=== PATIENT | male | born 1975 | race African-American/Black ===

== ENCOUNTER 2017-09-24 18:04 | Inpatient (IN) | payer OTHER ==
[2017-09-24 18:26] VITALS: BMI 21.1
--- NOTE | 2017-09-24 20:40 | HP ---
CIWA Score - CIWA Score Nausea/Vomitin-Cont. Nausea/Vomiting Muscle Tremors: 4-Moderate,w/Arms Extend Anxiety: 4-Mod. Anxious/Guarded Agitation: 4-Moderately Restless Paroxysmal Sweats: 3 Orientation: 1-Uncertain about Date Tacttile Disturbances: 0-None Auditory Disturbances: 0-None Visual Disturbances: 0-None Headache: 0-None Present CIWA-Ar Total Score: 23 Admission ROS BHS - HPI Chief Complaint: C/O WITHDRAWAL SX'S; SEEKING DETOX TXMENT FOR ALCOHOLISM Allergies/Adverse Reactions: Allergies Allergy/AdvReac Type Severity Reaction Status Date / Time No Known Allergies Allergy Verified 08/01/15 10:13 History of Present Illness: 42 Y.O. MALEW WITH LONG HX/O ALCOHOLISM PRESENTS FOR DETOX ADMISSION. CLIENT IS KNOWN TO THIS PROGRAM, LAST HERE IN 2015. HE IS REFERRED TODAY BY [facility] DUE TO A FALL FROM BEING INTOXICATED AND BLACKING OUT. A 1 INCH LACERATION AND ABRASION TO UPPER LEFT LIP NOTED . HE PRESENTS WITH DC PAPERS HEAD CT NOTED. REPORTS LONGEST CLEAN TIME 1 YEAR. Exam Limitations: Clinical Condition - Ebola screening Have you traveled outside of the country in the last 21 days: No Have you had contact with anyone from an Ebola affected area: No Have you been sick,other than usual withdrawal symptoms: No Do you have a fever: No - Review of Systems Constitutional: Chills, Loss of Appetite, Night Sweats EENT: reports: No Symptoms Reported Respiratory: reports: No Symptoms reported Cardiac: reports: No Symptoms Reported GI: reports: Nausea, Poor Appetite, Poor Fluid Intake, Vomiting, Abdominal cramping : reports: No Symptoms Reported Musculoskeletal: reports: No Symptoms Reported Integumentary: reports: Other (LEFT UPPER LIP ABRASION ABRASION NOTED TO BOTH HAND KNUCKLES DUE TO RECENT FALL) Neuro: reports: Seizure, Dizziness, Other (BLACK OUTS) Endocrine: reports: No Symptoms Reported Hematology: reports: No Symptoms Reported Psychiatric: reports: Anxious, Depressed, other (BIPOLAR SCHIZOPHRENIA) Other Systems: Reviewed and Negative Patient History - Patient Medical History Hx Anemia: No Hx Asthma: No Hx Chronic Obstructive Pulmonary Disease (COPD): No Hx Cancer: No Hx Cardiac Disorders: No Hx Congestive Heart Failure: No Hx Hypertension: No Hx Hypercholesterolemia: No Hx Pacemaker: No HX Cerebrovascular Accident: No Hx Seizures: Yes (2007 R/T ALCOHOL) Hx Dementia: No Hx Diabetes: No Hx Gastrointestinal Disorders: No Hx Liver Disease: No Hx Genitourinary Disorders: No Hx Sexually Transmitted Disorders: No Hx Renal Disease (ESRD): No Hx Thyroid Disease: No Hx Human Immunodeficiency Virus (HIV): No Hx Hepatitis C: No Hx Depression: Yes Hx Suicide Attempt: No Hx Bipolar Disorder: Yes (not on any meds) Hx Schizophrenia: Yes Other Medical History: ANXIETY - Patient Surgical History Past Surgical History: Yes Hx Neurologic Surgery: No Hx Cataract Extraction: No Hx Cardiac Surgery: No Hx Lung Surgery: Yes (PARTIAL R lung LOBECTOMY removed in 2005) Hx Breast Surgery: No Hx Breast Biopsy: No Hx Abdominal Surgery: No Hx Appendectomy: No Hx Cholecystectomy: No Hx Genitourinary Surgery: No Hx Section: No Hx Orthopedic Surgery: No Anesthesia Reaction: Yes - PPD History Previous Implant?: Yes Documented Results: Negative w/proof Implanted On Prior [facility] Admission?: Yes Date: 08/03/15 Results: 0MM PPD to be Administered?: Yes - Smoking Cessation Smoking history: Current every day smoker Have you smoked in the past 12 months: Yes Aproximately how many cigarettes per day: 10 Cigars Per Day: 0 Hx Chewing Tobacco Use: No Initiated information on smoking cessation: Yes 'Breaking Loose' booklet given: 09/24/17 - Substance & Tx. History Hx Alcohol Use: Yes Hx Substance Use: Yes Substance Use Type: Alcohol, Marijuana Hx Substance Use Treatment: Yes ([facility]) - Substances Abused Alcohol Route: Oral Frequency: Daily Amount used: Beer 2 x 6 pack, Vodka 2 pints Age of first use: 13 Date of Last Use: 09/23/17 Marijuana/Hashish Route: Smoking Frequency: 3-6 times per week Amount used: $10 Age of first use: 16 Date of Last Use: 09/23/17 Family Disease History - Family Disease History Family Disease History: Other: Mother (HX/O CRACK AND ALCOHOL; HTN), Sister (HX/ O CRACK AND ALCHOLISM) Admission Physical Exam S - Vital Signs Vital Signs: Vital Signs - 24 hr 09/24/17 18:21 Temperature 99.8 F H Pulse Rate 108 H Respiratory 18 Rate Blood Pressure 150/100 - Physical General Appearance: Yes: Disheveled (BLOODY CLOTHES), Moderate Distress, Alcohol on Breath, Tremorous, Anxious HEENTM: Yes: EOMI, Normal ENT Inspection, Normocephalic, Normal Voice, BRITTANI, Pharynx Normal, Other (MISSING TEETH) Respiratory: Yes: Chest Non-Tender, Lungs Clear, Normal Breath Sounds, No Respiratory Distress, No Accessory Muscle Use Neck: Yes: No masses,lesions,Nodules, Supple, Trachea in good position Breast: Yes: Breast Exam Deferred Cardiology: Yes: Regular Rhythm, S1, S2, Tachycardia Abdominal: Yes: Normal Bowel Sounds, Non Tender, Flat, Soft Genitourinary: Yes: Within Normal Limits Back: Yes: Normal Inspection Musculoskeletal: Yes: full range of Motion, Gait Steady Extremities: Yes: Normal Range of Motion, Non-Tender, Tremors Neurological: Yes: Alert, Motor Strength 5/5 Integumentary: Yes: Normal Color, Dry, Warm, Other (LEFT UPPER LIP ABRASION AND 1 CM LACERATION) Lymphatic: Yes: Within Normal Limits - Diagnostic (1) Alcohol dependence with uncomplicated withdrawal Current Visit: Yes Status: Chronic (2) Cannabis dependence, uncomplicated Current Visit: Yes Status: Chronic (3) Status post fall Current Visit: Yes Status: Acute (4) Nicotine dependence Current Visit: No Status: Chronic Qualifiers: Nicotine product type: cigarettes Substance use status: uncomplicated Qualified Code(s): F17.210 - Nicotine dependence, cigarettes, uncomplicated Cleared for Admission [facility] - Detox or Rehab [facility] Level of Care: Medically Managed Detox Regimen/Protocol: Librium [facility] Breath Alcohol Content Breath Alcohol Content: 0.064 Urine Drug Screen - Results Drug Screen Negative: No Urine Drug Screen Results: THC-Marijuana
[2017-09-24] MEDS ORDERED: MAGNESIUM HYDROX 2400MG/30ML ORAL SUSPENSION 30 ML CUP PO PRN (20:53)
[2017-09-24] MEDS ORDERED: guaiFENesin/D-METHORPHAN HB 10 ML UNIT-DOSE CUPS PO PRN (20:53)
[2017-09-24] MEDS ORDERED: MAG HYDROX/AL HYDROX/SIMETH 30 ML UNIT-DOSE CUP PO PRN (20:53)
[2017-09-24] MEDS ORDERED: ACETAMINOPHEN 325 MG TABLET (FP) PO PRN (20:53)
[2017-09-24] MEDS ORDERED: chlordiazePOXIDE HCL 25 MG CAPSULE PO PRN (20:53)
[2017-09-24] MEDS ORDERED: hydrOXYzine PAMOATE 50 MG CAPSULE (FP) PO PRN (20:53)
[2017-09-24] MEDS ORDERED: MAGNESIUM CITRATE 300 ML BOTTLE PO PRN (20:53)
[2017-09-24] MEDS ORDERED: MENTHOL/PHENOL 1 EACH UD MM PRN (20:53)
[2017-09-24] MEDS ORDERED: LOPERAMIDE HCL 2 MG CAPSULE PO PRN (20:53)
[2017-09-24] MEDS ORDERED: NICOTINE POLACRILEX 2 MG GUM BC PRN (20:53)
[2017-09-24] MEDS ORDERED: IBUPROFEN 400 MG TABLET (FP) PO PRN (20:53)
[2017-09-24] MEDS ORDERED: P-EPHED 60MG/TRIPROLIDI 2.5MG TABLET PO PRN (20:53)
[2017-09-24] MEDS: THIAMINE HCL 100 MG TABLET (FP) PO SCH (22:34)
[2017-09-24] MEDS: chlordiazePOXIDE HCL 25 MG CAPSULE PO SCH (22:35)
[2017-09-24] MEDS: BACITRACIN 0.9 GM PACKET TP SCH (22:56)
[2017-09-25 00:01] LABS: URINE APPEARANCE CLEAR; URINE BILIRUBIN NEGATIVE (NEGATIVE); URINE BLOOD 1+ (NEGATIVE); URINE COLOR YELLOW; URINE GLUCOSE (UA) NEGATIVE (NEGATIVE); URINE KETONE 1+ (NEGATIVE); URINE LEUK ESTERASE NEGATIVE (NEGATIVE); URINE NITRITE NEGATIVE (NEGATIVE); URINE PROTEIN 2+ (NEGATIVE); URINE UROBILINOGEN NEGATIVE mg/dL (0.2-1.0)
[2017-09-25 00:06] LABS: URINE BACTERIA RARE /hpf (NONE SEEN); URINE MUCUS RARE
[2017-09-25] MEDS: chlordiazePOXIDE HCL 25 MG CAPSULE PO SCH ×4 (05:57→23:28)
[2017-09-25 10:14] LABS: HEMATOCRIT 43.1 % (35.4-49); HEMOGLOBIN 14.9 GM/dL (11.7-16.9); MCH 35.6 pg (25.7-33.7); MCHC 34.6 g/dl (32.0-35.9); MEAN CELL VOLUME 102.7 fl (80-96); MEAN PLT VOLUME 8.6 fl (7.5-11.1); PLATELET COUNT 230 K/MM3 (134-434); RDW 13.6 % (11.9-15.9); WHITE BLOOD COUNT 5.7 K/mm3 (4.0-10.0)
[2017-09-25 10:20] LABS: CHLORIDE 97 mmol/L (98-107); POTASSIUM 3.8 mmol/L (3.5-5.1); SODIUM 137 mmol/L (136-145)
--- NOTE | 2017-09-25 10:32 | CONSULT ---
[facility] Psychiatric Consult - Data Date of interview: 09/25/17 Admission source: [facility] Identifying data: This is 42 years old male, father of three, single, on SSI, with psychiatric hospitalization history, history of Alcohol and Nicotine depednency ias here for detox Substance Abuse History: Smoking history: Current every day smoker. Have you smoked in the past 12 months: Yes. Aproximately how many cigarettes per day: 10. Cigars Per Day: 0. Hx Chewing Tobacco Use: No. Initiated information on smoking cessation: Yes. 'Breaking Loose' booklet given: 09/24/17. - Substance & Tx. History. Hx Alcohol Use: Yes. Hx Substance Use: Yes. Substance Use Type : Alcohol, Marijuana. Hx Substance Use Treatment: Yes ([facility]). - Substances Abused. Alcohol. Route: Oral. Frequency: Daily. Amount used: Beer 2 x 6 pack, Vodka 2 pints. Age of first use: 13. Date of Last Use: 09/23/17. Marijuana/Hashish. Route: Smoking. Frequency: 3-6 times per week. Amount used : $10. Age of first use: 16. Date of Last Use: 09/23/17 Medical History: Head trauma history, he was refered from [facility] after falling incident being under Alcohol influance. Patient with a one inch laceration,abrasion at the left upper lip. Psychiatric History: As per chart patient has been on [id number] poqd, Depacote 250mg po bid in the past, refusing pharmacological interventiuon at this mopment. Reports unclear psychiatric admission on about 10 years ago, as per computer there is a history of Schizophrenia Physical/Sexual Abuse/Trauma History: Denies Additional Comment: Observation. Detox Unit Care Protocol. Consider: [id number] poqd,. Depacote 250mg po bid Mental Status Exam - Mental Status Exam Alert and Oriented to: Person Cognitive Function: Fair Patient Appearance: Unkempt Mood: Angry, Anxious Affect: Mood Congruent Patient Behavior: Cooperative Speech Pattern: Appropriate Voice Loudness: Normal Thought Process: Circumstantial Thought Disorder: Being Controlled Hallucinations: Denies Suicidal Ideation: Denies Homicidal Ideation: Denies Insight/Judgement: Fair Sleep: Difficulty falling asleep Appetite: Weight loss Muscle strength/Tone: Normal Gait/Station: Shuffling Additional Comments: Observation. Detox Unit Care Protocol. Consider: [id number] poqd,. Depacote 250mg po bid Psychiatric Findings - Problem List ([place] 1, 2,3) (1) Alcohol dependence with uncomplicated withdrawal Current Visit: Yes Status: Chronic (2) Cannabis dependence, uncomplicated Current Visit: Yes Status: Chronic (3) Alcohol dependence Current Visit: No Status: Acute (4) Cannabis dependence Current Visit: No Status: Acute (5) Schizophrenia Current Visit: No Status: Acute (6) Nicotine dependence Current Visit: No Status: Chronic Qualifiers: Nicotine product type: cigarettes Substance use status: uncomplicated Qualified Code(s): F17.210 - Nicotine dependence, cigarettes, uncomplicated - Initial Treatment Plan Initial Treatment Plan: Observation. Detox Unit Care Protocol. Consider: [id number] poqd,. Depacote 250mg po bid
[2017-09-25 10:43] LABS: ALBUMIN 4.3 g/dl (3.4-5.0); ALK PHOS 91 U/L (45-117); ANION GAP 10 (8-16); BILIRUBIN,TOTAL 1.2 mg/dL (0.2-1.0); BLOOD UREA NITROGEN 16 mg/dL (7-18); CALCIUM 9.3 mg/dL (8.5-10.1); CO2 30 mmol/L (21-32); CREATININE 1.1 mg/dL (0.7-1.3); GLUCOSE,RANDOM 83 mg/dL (74-106); SGOT/AST 25 U/L (15-37); SGPT/ALT 24 U/L (12-78); TOT PROT 7.7 g/dl (6.4-8.2)
[2017-09-25] MEDS: BACITRACIN 0.9 GM PACKET TP SCH ×2 (11:12→23:29)
[2017-09-25] MEDS: PRENATAL VITAMINS W/ FOLIC ACID TABLET (FP) PO SCH (11:12)
[2017-09-25] MEDS: NICOTINE 14 MG/24 HOURS TOPICAL PATCH TD SCH (11:14)
--- NOTE | 2017-09-25 12:40 | PN ---
S CIWA - CIWA Score Nausea/Vomitin Muscle Tremors: 3 Anxiety: 3 Agitation: 2 Paroxysmal Sweats: 1-Minimal Palms Moist Orientation: 0-Oriented Tacttile Disturbances: 1-Very Mild Itch/Numbness Auditory Disturbances: 1-Very Mild Visual Disturbances: 0-None Headache: 2-Mild CIWA-Ar Total Score: 16 BHS Progress Note (SOAP) Subjective: ALERT,IRRITABLE,ANXIOUS,INTERRUPTED SLEEP,TREMOR Objective: 09/25/17 12:38 Vital Signs Temperature 96.1 F L 09/25/17 06:55 Pulse Rate 67 09/25/17 06:55 Respiratory Rate 19 09/25/17 06:55 Blood Pressure 108/61 09/25/17 06:55 O2 Sat by Pulse Oximetry (%) EKG NSR WITH SINUS ARRHYTHMIA Laboratory Last Values WBC 5.7 K/mm3 (4.0-10.0) D 09/25/17 07:00 RBC 4.20 M/mm3 (4.00-5.60) 09/25/17 07:00 Hgb 14.9 GM/dL (11.7-16.9) 09/25/17 07:00 Hct 43.1 % (35.4-49) 09/25/17 07:00 MCV 102.7 fl (80-96) H 09/25/17 07:00 MCH 35.6 pg (25.7-33.7) H 09/25/17 07:00 MCHC 34.6 g/dl (32.0-35.9) 09/25/17 07:00 RDW 13.6 % (11.9-15.9) 09/25/17 07:00 Plt Count 230 K/MM3 (134-434) D 09/25/17 07:00 MPV 8.6 fl (7.5-11.1) 09/25/17 07:00 Sodium 137 mmol/L (136-145) 09/25/17 07:00 Potassium 3.8 mmol/L (3.5-5.1) 09/25/17 07:00 Chloride 97 mmol/L (98-107) L 09/25/17 07:00 Carbon Dioxide 30 mmol/L (21-32) 09/25/17 07:00 Anion Gap 10 (8-16) 09/25/17 07:00 BUN 16 mg/dL (7-18) 09/25/17 07:00 Creatinine 1.1 mg/dL (0.7-1.3) 09/25/17 07:00 Creat Clearance w eGFR > 60 (>60) 09/25/17 07:00 Random Glucose 83 mg/dL (74-106) 09/25/17 07:00 Calcium 9.3 mg/dL (8.5-10.1) 09/25/17 07:00 Total Bilirubin 1.2 mg/dL (0.2-1.0) H 09/25/17 07:00 AST 25 U/L (15-37) D 09/25/17 07:00 ALT 24 U/L (12-78) D 09/25/17 07:00 Alkaline Phosphatase 91 U/L (45-117) D 09/25/17 07:00 Total Protein 7.7 g/dl (6.4-8.2) 09/25/17 07:00 Albumin 4.3 g/dl (3.4-5.0) 09/25/17 07:00 Urine Color Yellow 09/24/17 20:00 Urine Appearance Clear 09/24/17 20:00 Urine pH 5.0 (5.0-8.0) 09/24/17 20:00 Ur Specific [place] 1.024 (1.001-1.035) 09/24/17 20:00 Urine Protein 2+ (NEGATIVE) H 09/24/17 20:00 Urine Glucose (UA) Negative (NEGATIVE) 09/24/17 20:00 Urine Ketones 1+ (NEGATIVE) H 09/24/17 20:00 Urine Blood 1+ (NEGATIVE) H 09/24/17 20:00 Urine Nitrite Negative (NEGATIVE) 09/24/17 20:00 Urine Bilirubin Negative (NEGATIVE) 09/24/17 20:00 Urine Urobilinogen Negative mg/dL (0.2-1.0) 09/24/17 20:00 Ur Leukocyte Esterase Negative (NEGATIVE) 09/24/17 20:00 Urine WBC (Auto) 1 /hpf (3-5) 09/24/17 20:00 Urine RBC (Auto) <1 /hpf (0-3) 09/24/17 20:00 Urine Bacteria Rare /hpf (NONE SEEN) 09/24/17 20:00 Urine Mucus Rare 09/24/17 20:00 RPR Titer Nonreactive (NONREACTIVE) 09/25/17 07:00 HIV 1&2 Antibody Screen Negative 09/25/17 07:00 HIV P24 Antigen Negative 09/25/17 07:00 Assessment: 09/25/17 12:39 WITHDRAWAL SYMPTOM Plan: CONTINUE DETOX
--- NOTE | 2017-09-25 16:06 | EKG ---
Test Reason : Blood Pressure : / mmHG Vent. Rate : 080 BPM Atrial Rate : 080 BPM P-R Int : 138 ms QRS Dur : 078 ms QT Int : 342 ms P-R-T Axes : 053 065 037 degrees QTc Int : 394 ms NORMAL SINUS RHYTHM WITH SINUS ARRHYTHMIA NORMAL ECG NO PREVIOUS ECGS AVAILABLE Confirmed by RHINA TENA MD ([id number]) on 09/25/2017 4:06:43 PM Referred By: Mendez Murrieta Confirmed By:RHINA TENA MD
[2017-09-25] MEDS: ONDANSETRON *ODT* 4 MG TABLET SL PRN (21:55)
[2017-09-25] MEDS: THIAMINE HCL 100 MG TABLET (FP) PO SCH (23:29)
[2017-09-26] MEDS: chlordiazePOXIDE HCL 25 MG CAPSULE PO SCH ×3 (06:07→17:16)
--- NOTE | 2017-09-26 12:06 | PN ---
S CIWA - CIWA Score Nausea/Vomitin Muscle Tremors: 3 Anxiety: 3 Agitation: 2 Paroxysmal Sweats: 1-Minimal Palms Moist Orientation: 0-Oriented Tacttile Disturbances: 1-Very Mild Itch/Numbness Auditory Disturbances: 1-Very Mild Visual Disturbances: 0-None Headache: 2-Mild CIWA-Ar Total Score: 16 BHS Progress Note (SOAP) Subjective: ALERT,IRRITABLE,ANXIOUS,INTERRUPTED SLEEP,TREMOR Objective: 09/26/17 12:05 Vital Signs Temperature 96.4 F L 09/26/17 10:04 Pulse Rate 107 H 09/26/17 10:04 Respiratory Rate 20 09/26/17 10:04 Blood Pressure 146/83 09/26/17 10:04 O2 Sat by Pulse Oximetry (%) Laboratory Last Values WBC 5.7 K/mm3 (4.0-10.0) D 09/25/17 07:00 RBC 4.20 M/mm3 (4.00-5.60) 09/25/17 07:00 Hgb 14.9 GM/dL (11.7-16.9) 09/25/17 07:00 Hct 43.1 % (35.4-49) 09/25/17 07:00 MCV 102.7 fl (80-96) H 09/25/17 07:00 MCH 35.6 pg (25.7-33.7) H 09/25/17 07:00 MCHC 34.6 g/dl (32.0-35.9) 09/25/17 07:00 RDW 13.6 % (11.9-15.9) 09/25/17 07:00 Plt Count 230 K/MM3 (134-434) D 09/25/17 07:00 MPV 8.6 fl (7.5-11.1) 09/25/17 07:00 Sodium 137 mmol/L (136-145) 09/25/17 07:00 Potassium 3.8 mmol/L (3.5-5.1) 09/25/17 07:00 Chloride 97 mmol/L (98-107) L 09/25/17 07:00 Carbon Dioxide 30 mmol/L (21-32) 09/25/17 07:00 Anion Gap 10 (8-16) 09/25/17 07:00 BUN 16 mg/dL (7-18) 09/25/17 07:00 Creatinine 1.1 mg/dL (0.7-1.3) 09/25/17 07:00 Creat Clearance w eGFR > 60 (>60) 09/25/17 07:00 Random Glucose 83 mg/dL (74-106) 09/25/17 07:00 Calcium 9.3 mg/dL (8.5-10.1) 09/25/17 07:00 Total Bilirubin 1.2 mg/dL (0.2-1.0) H 09/25/17 07:00 AST 25 U/L (15-37) D 09/25/17 07:00 ALT 24 U/L (12-78) D 09/25/17 07:00 Alkaline Phosphatase 91 U/L (45-117) D 09/25/17 07:00 Total Protein 7.7 g/dl (6.4-8.2) 09/25/17 07:00 Albumin 4.3 g/dl (3.4-5.0) 09/25/17 07:00 Urine Color Yellow 09/24/17 20:00 Urine Appearance Clear 09/24/17 20:00 Urine pH 5.0 (5.0-8.0) 09/24/17 20:00 Ur Specific [place] 1.024 (1.001-1.035) 09/24/17 20:00 Urine Protein 2+ (NEGATIVE) H 09/24/17 20:00 Urine Glucose (UA) Negative (NEGATIVE) 09/24/17 20:00 Urine Ketones 1+ (NEGATIVE) H 09/24/17 20:00 Urine Blood 1+ (NEGATIVE) H 09/24/17 20:00 Urine Nitrite Negative (NEGATIVE) 09/24/17 20:00 Urine Bilirubin Negative (NEGATIVE) 09/24/17 20:00 Urine Urobilinogen Negative mg/dL (0.2-1.0) 09/24/17 20:00 Ur Leukocyte Esterase Negative (NEGATIVE) 09/24/17 20:00 Urine WBC (Auto) 1 /hpf (3-5) 09/24/17 20:00 Urine RBC (Auto) <1 /hpf (0-3) 09/24/17 20:00 Urine Bacteria Rare /hpf (NONE SEEN) 09/24/17 20:00 Urine Mucus Rare 09/24/17 20:00 RPR Titer Nonreactive (NONREACTIVE) 09/25/17 07:00 HIV 1&2 Antibody Screen Negative 09/25/17 07:00 HIV P24 Antigen Negative 09/25/17 07:00 Assessment: 09/26/17 12:06 WITHDRAWAL SYMPTOM Plan: CONTINUE DETOX
[2017-09-26] MEDS: NICOTINE 14 MG/24 HOURS TOPICAL PATCH TD SCH (13:53)
[2017-09-26] MEDS: PRENATAL VITAMINS W/ FOLIC ACID TABLET (FP) PO SCH (13:53)
[2017-09-26] MEDS: BACITRACIN 0.9 GM PACKET TP SCH ×2 (13:54→22:53)
[2017-09-26] MEDS: ONDANSETRON *ODT* 4 MG TABLET SL PRN ×2 (14:34→21:54)
[2017-09-26] MEDS: THIAMINE HCL 100 MG TABLET (FP) PO SCH (21:54)
[2017-09-26] MEDS: chlordiazePOXIDE 5 MG CAPSULE PO SCH (22:59)
[2017-09-27] MEDS: chlordiazePOXIDE 5 MG CAPSULE PO SCH ×2 (06:00→11:15)
[2017-09-27] MEDS: PRENATAL VITAMINS W/ FOLIC ACID TABLET (FP) PO SCH (11:14)
[2017-09-27] MEDS: NICOTINE 14 MG/24 HOURS TOPICAL PATCH TD SCH (11:14)
[2017-09-27] MEDS: BACITRACIN 0.9 GM PACKET TP SCH (11:15)
--- NOTE | 2017-09-27 13:01 | PN ---
S Progress Note (SOAP) Subjective: ALERT,IRRITABLE,INTERRUPTED SLEEP,POOR ORAL INTAKE Objective: 09/27/17 13:00 Vital Signs Temperature 98.6 F 09/27/17 10:38 Pulse Rate 122 H 09/27/17 10:38 Respiratory Rate 18 09/27/17 10:38 Blood Pressure 121/97 09/27/17 10:38 O2 Sat by Pulse Oximetry (%) Assessment: 09/27/17 13:00 WITHDRAWAL SYMPTOM Plan: CONTINUE DETOX,ENSURE PLUS 120 MLS PO TID,DISCHARGE IN AM
[2017-09-27] MEDS: ONDANSETRON *ODT* 4 MG TABLET SL PRN (16:59)
[2017-09-27 17:16] LABS: URINE APPEARANCE CLEAR; URINE BILIRUBIN NEGATIVE (NEGATIVE); URINE BLOOD NEGATIVE (NEGATIVE); URINE COLOR AMBER; URINE GLUCOSE (UA) NEGATIVE (NEGATIVE); URINE KETONE TRACE (NEGATIVE); URINE LEUK ESTERASE NEGATIVE (NEGATIVE); URINE NITRITE NEGATIVE (NEGATIVE); URINE UROBILINOGEN 4.0 E.U/dl mg/dL (0.2-1.0)
[2017-09-27 17:17] LABS: URINE PROTEIN 2+ (NEGATIVE)
[2017-09-27 17:21] LABS: EPI CELLS RARE /HPF (FEW)
[2017-09-27 18:11] VITALS: BP 104/77; PULSE 105; TEMP 98.6
--- NOTE | 2017-09-27 19:35 | DS ---
[facility] Detox Discharge Summary Admission Date: 09/24/17 Discharge Date: 09/27/17 - History Present History: Alcohol Dependence Pertinent Past History: Schizophrenia Cannabis Dependence Nicotine dependence - Physical Exam Results Vital Signs: Vital Signs Temperature 98.6 F 09/27/17 18:11 Pulse Rate 105 H 09/27/17 18:11 Respiratory Rate 20 09/27/17 18:11 Blood Pressure 104/77 09/27/17 18:11 O2 Sat by Pulse Oximetry (%) - Medication Discharge Medications: Ambulatory Orders Divalproex [Depakote -] 250 mg PO BID 08/01/15 Fluoxetine HCl [Prozac -] 20 mg PO DAILY 08/01/15 - Diagnosis (1) Schizophrenia Status: Chronic Qualifiers: Schizophrenia type: unspecified Qualified Code(s): F20.9 - Schizophrenia, unspecified (2) Status post fall Status: Resolved (3) Alcohol dependence with uncomplicated withdrawal Status: Acute (4) Cannabis dependence, uncomplicated Status: Chronic (5) Nicotine dependence Status: Chronic Qualifiers: Nicotine product type: cigarettes Substance use status: uncomplicated Qualified Code(s): F17.210 - Nicotine dependence, cigarettes, uncomplicated - AMA Did Patient Leave Against Medical Advice: Yes
--- NOTE | 2017-09-27 19:42 | PN ---
[facility] Progress Note Note: Patient was evaluated by bedside, reports feeling weak. Patient in no apparent distress. Patient insist on leaving today, although it advise for him to stay and continue to treatment. The patient verbalizes he understands the risks and complications that may result from the refusal of medical care which may include and permanent disability and has the mental capacity to make such decision. Patient advised to seek medical care at local ER , PCP or urgent care if symptoms worsen.
[2017-09-27] MEDS ORDERED: chlordiazePOXIDE HCL 10 MG CAPSULE PO SCH (23:00)
== END 2017-09-27 18:25 | disposition left against medical advice (07) | DRG 770 ==
LOC: YASAS 18:04 → Y6N 18:48
PROVIDERS: ADMIT Internal Medicine; ATTEND Internal Medicine
PROC: HZ2ZZZZ Detoxification Services for Substance Abuse Treatment (ICD-10-PCS; principal; 2017-09-24)
DX: F10.230 Alcohol dependence with withdrawal, uncomplicated (principal); F12.20 Cannabis dependence, uncomplicated; F17.210 Nicotine dependence, cigarettes, uncomplicated; F20.9 Schizophrenia, unspecified; I49.9 Cardiac arrhythmia, unspecified; Z91.81 History of falling; R00.0 Tachycardia, unspecified; Z90.2 Acquired absence of lung [part of]; Z86.69 Personal history of other diseases of the nervous system and sense organs; Z59.0 Homelessness
CPT/HCPCS: 36415; 80053; 81003; 81015; 85027; 86593; 87389; 93005; 93010; Q0162

== ENCOUNTER 2017-10-24 15:00 | Inpatient (IN) | payer OTHER ==
[2017-10-24 16:52] VITALS: BMI 21.1
--- NOTE | 2017-10-24 20:52 | HP ---
CIWA Score - CIWA Score Nausea/Vomitin Muscle Tremors: 4-Moderate,w/Arms Extend Anxiety: 1-Mildly Anxious Agitation: 3 Paroxysmal Sweats: 1-Minimal Palms Moist Orientation: 0-Oriented Tacttile Disturbances: 0-None Auditory Disturbances: 0-None Visual Disturbances: 0-None Headache: 2-Mild CIWA-Ar Total Score: 14 Admission ROS S - HPI Chief Complaint: alcohol withdrawal symptoms Allergies/Adverse Reactions: Allergies Allergy/AdvReac Type Severity Reaction Status Date / Time No Known Allergies Allergy Verified 10/24/17 18:28 History of Present Illness: 42 years old male with a long history of alcohol dependence is seeking admission to detox. Patient has been in previous detox at [facility] and left AMA at his recent admission on 09/24/2017. Importance of completing detox therapy reinforced and patient verbalized understanding. He has medical history of seizures and depression. Denies suicidal ideation at this time. Exam Limitations: No Limitations - Ebola screening Have you traveled outside of the country in the last 21 days: No Have you had contact with anyone from an Ebola affected area: No Have you been sick,other than usual withdrawal symptoms: No Do you have a fever: No - Review of Systems Constitutional: Chills, Loss of Appetite, Malaise, Night Sweats, Unexplained wgt Loss (reports 30 lbs weight loss) EENT: reports: Nose Congestion, Sinus Pressure Respiratory: reports: No Symptoms reported Cardiac: reports: No Symptoms Reported GI: reports: Nausea, Poor Appetite, Poor Fluid Intake, Vomiting (x 10), Abdominal cramping : reports: No Symptoms Reported Musculoskeletal: reports: Back Pain Integumentary: reports: Dryness, Flushing Neuro: reports: Headache, Tingling, Tremors Endocrine: reports: No Symptoms Reported Hematology: reports: No Symptoms Reported Psychiatric: reports: Mood/Affect Appropiate, Agitated, Anxious Other Systems: Reviewed and Negative Patient History - Patient Medical History Hx Anemia: No Hx Asthma: No Hx Chronic Obstructive Pulmonary Disease (COPD): No Hx Cancer: No Hx Cardiac Disorders: No Hx Congestive Heart Failure: No Hx Hypertension: No Hx Hypercholesterolemia: No Hx Pacemaker: No HX Cerebrovascular Accident: No Hx Seizures: Yes (2014 R/T ALCOHOL- nnot on medication) Hx Dementia: No Hx Diabetes: No Hx Gastrointestinal Disorders: No Hx Liver Disease: No Hx Genitourinary Disorders: No Hx Sexually Transmitted Disorders: No Hx Renal Disease (ESRD): No Hx Thyroid Disease: No Hx Human Immunodeficiency Virus (HIV): No Hx Hepatitis C: No Hx Depression: Yes (Not on medication) Hx Suicide Attempt: No (Denies suicidal ideation at this time) Hx Bipolar Disorder: Yes (not on any meds) Hx Schizophrenia: Yes - Patient Surgical History Past Surgical History: Yes Hx Neurologic Surgery: No Hx Cataract Extraction: No Hx Cardiac Surgery: No Hx Lung Surgery: Yes (PARTIAL R lung LOBECTOMY removed in 2005) Hx Breast Surgery: No Hx Breast Biopsy: No Hx Abdominal Surgery: No Hx Appendectomy: No Hx Cholecystectomy: No Hx Genitourinary Surgery: No Hx Section: No Hx Orthopedic Surgery: No Anesthesia Reaction: Yes - PPD History Previous Implant?: Yes Documented Results: Negative w/proof Date: 09/26/17 Results: 0MM PPD to be Administered?: No - Reproductive History Patient is a Female of Child Bearing Age (11 -55 yrs old): No (MALE) - Smoking Cessation Smoking history: Current every day smoker Have you smoked in the past 12 months: Yes Aproximately how many cigarettes per day: 10 Cigars Per Day: 0 Hx Chewing Tobacco Use: No Initiated information on smoking cessation: Yes 'Breaking Loose' booklet given: 10/24/17 - Substance & Tx. History Hx Alcohol Use: Yes Hx Substance Use: Yes Substance Use Type: Marijuana Hx Substance Use Treatment: Yes ([facility]) - Substances Abused Alcohol Route: Oral Frequency: Daily Amount used: LIQUOR- 2 PINTS, BEER- 2 SIX PACKS Age of first use: 15 Date of Last Use: 10/23/17 Marijuana/Hashish Route: Smoking Frequency: 3-6 times per week Amount used: $10 Age of first use: 14 Date of Last Use: 10/23/17 Cocaine Route: Smoking Amount used: $40 Age of first use: 18 Date of Last Use: 10/23/17 Family Disease History - Family Disease History Family Disease History: Other: Mother (HX/O CRACK AND ALCOHOL; HTN), Sister (HX/ O CRACK AND ALCHOLISM) Admission Physical Exam BHS - Vital Signs Vital Signs: Vital Signs - 24 hr 10/24/17 16:49 Temperature 97.8 F Pulse Rate 102 H Respiratory 18 Rate Blood Pressure 133/87 - Physical General Appearance: Yes: Moderate Distress, Thin, Tremorous, Sweating HEENTM: Yes: EOMI, Normocephalic, Normal Voice, BRITTANI Respiratory: Yes: Normal Breath Sounds, No Respiratory Distress Neck: Yes: Supple Breast: Yes: Breast Exam Deferred Cardiology: Yes: Tachycardia Abdominal: Yes: Normal Bowel Sounds, Soft Genitourinary: Yes: Within Normal Limits Back: Yes: Normal Inspection Musculoskeletal: Yes: Within Normal Limits Extremities: Yes: Tremors Neurological: Yes: Alert, Normal Mood/Affect Integumentary: Yes: Dry Lymphatic: Yes: Within Normal Limits - Diagnostic (1) Seizures Current Visit: Yes Status: Chronic (2) Depression Current Visit: Yes Status: Chronic Qualifiers: Depression Type: unspecified Qualified Code(s): F32.9 - Major depressive disorder, single episode, unspecified (3) Alcohol dependence with uncomplicated withdrawal Status: Chronic (4) Cannabis dependence, uncomplicated Current Visit: Yes Status: Chronic (5) Nicotine dependence Current Visit: Yes Status: Chronic Qualifiers: Nicotine product type: cigarettes Substance use status: uncomplicated Qualified Code(s): F17.210 - Nicotine dependence, cigarettes, uncomplicated Cleared for Admission [facility] - Detox or Rehab [facility] Level of Care: Medically Managed Detox Regimen/Protocol: Librium [facility] Breath Alcohol Content Breath Alcohol Content: 0.060 Urine Drug Screen - Results Drug Screen Negative: No Urine Drug Screen Results: THC-Marijuana
[2017-10-24] MEDS ORDERED: MAGNESIUM HYDROX 2400MG/30ML ORAL SUSPENSION 30 ML CUP PO PRN (21:03)
[2017-10-24] MEDS ORDERED: MENTHOL/PHENOL 1 EACH UD MM PRN (21:03)
[2017-10-24] MEDS ORDERED: MAG HYDROX/AL HYDROX/SIMETH 30 ML UNIT-DOSE CUP PO PRN (21:03)
[2017-10-24] MEDS ORDERED: MAGNESIUM CITRATE 300 ML BOTTLE PO PRN (21:03)
[2017-10-24] MEDS ORDERED: P-EPHED 60MG/TRIPROLIDI 2.5MG TABLET PO PRN (21:03)
[2017-10-24] MEDS ORDERED: guaiFENesin/D-METHORPHAN HB 10 ML UNIT-DOSE CUPS PO PRN (21:03)
[2017-10-24] MEDS ORDERED: ACETAMINOPHEN 325 MG TABLET (FP) PO PRN (21:03)
[2017-10-24] MEDS ORDERED: LOPERAMIDE HCL 2 MG CAPSULE PO PRN (21:03)
[2017-10-24] MEDS ORDERED: IBUPROFEN 400 MG TABLET (FP) PO PRN (21:03)
[2017-10-24] MEDS ORDERED: NICOTINE POLACRILEX 2 MG GUM BC PRN (21:03)
[2017-10-24] MEDS ORDERED: chlordiazePOXIDE HCL 25 MG CAPSULE PO PRN (21:10)
[2017-10-24] MEDS ORDERED: chlordiazePOXIDE HCL 25 MG CAPSULE PO ONE (21:10)
[2017-10-24] MEDS ORDERED: MELATONIN 5 MG TABLETS PO PRN (22:00)
[2017-10-25] MEDS: THIAMINE HCL 100 MG TABLET (FP) PO SCH ×2 (02:18→22:45)
[2017-10-25] MEDS: chlordiazePOXIDE HCL 25 MG CAPSULE PO SCH ×5 (02:19→22:44)
[2017-10-25 08:50] LABS: URINE APPEARANCE CLEAR; URINE BILIRUBIN NEGATIVE (<2.0 mg/dL); URINE BLOOD NEGATIVE (NEGATIVE); URINE COLOR YELLOW; URINE GLUCOSE (UA) NEGATIVE (NEGATIVE); URINE KETONE NEGATIVE (NEGATIVE); URINE LEUK ESTERASE NEGATIVE (NEGATIVE); URINE NITRITE NEGATIVE (NEGATIVE); URINE PROTEIN NEGATIVE (NEGATIVE)
[2017-10-25 10:48] LABS: HEMATOCRIT 42.5 % (35.4-49); HEMOGLOBIN 14.6 GM/dL (11.7-16.9); MCH 35.8 pg (25.7-33.7); MCHC 34.3 g/dl (32.0-35.9); MEAN CELL VOLUME 104.3 fl (80-96); MEAN PLT VOLUME 8.7 fl (7.5-11.1); PLATELET COUNT 211 K/MM3 (134-434); RBC 4.07 M/mm3 (4.00-5.60); RDW 13.5 % (11.9-15.9); WHITE BLOOD COUNT 4.9 K/mm3 (4.0-10.0)
[2017-10-25] MEDS: PRENATAL VITAMINS W/ FOLIC ACID TABLET (FP) PO SCH (10:51)
[2017-10-25] MEDS: NICOTINE 14 MG/24 HOURS TOPICAL PATCH TD SCH (10:51)
--- NOTE | 2017-10-25 10:53 | EKG ---
Test Reason : Blood Pressure : / mmHG Vent. Rate : 067 BPM Atrial Rate : 067 BPM P-R Int : 124 ms QRS Dur : 092 ms QT Int : 392 ms P-R-T Axes : -20 063 038 degrees QTc Int : 414 ms NORMAL SINUS RHYTHM NORMAL ECG WHEN COMPARED WITH ECG OF 24-SEP-2017 20:26, NO SIGNIFICANT CHANGE WAS FOUND Confirmed by MARKUS BRYSON MD ([id number]) on 10/25/2017 10:53:09 AM Referred By: Confirmed By:MARKUS BRYSON MD
[2017-10-25 11:03] LABS: ALBUMIN 3.9 g/dl (3.4-5.0); ANION GAP 7 (8-16); BLOOD UREA NITROGEN 10 mg/dL (7-18); CALCIUM 9.5 mg/dL (8.5-10.1); CHLORIDE 101 mmol/L (98-107); CO2 31 mmol/L (21-32); GLUCOSE,RANDOM 73 mg/dL (74-106); POTASSIUM 3.9 mmol/L (3.5-5.1); SGOT/AST 23 U/L (15-37); SGPT/ALT 20 U/L (12-78); SODIUM 139 mmol/L (136-145)
[2017-10-25 11:06] LABS: ALK PHOS 90 U/L (45-117); CREATININE 0.9 mg/dL (0.7-1.3); TOT PROT 7.1 g/dl (6.4-8.2)
--- NOTE | 2017-10-25 11:10 | PN ---
S CIWA - CIWA Score Nausea/Vomitin Muscle Tremors: 3 Anxiety: 3 Agitation: 2 Paroxysmal Sweats: 1-Minimal Palms Moist Orientation: 0-Oriented Tacttile Disturbances: 1-Very Mild Itch/Numbness Auditory Disturbances: 1-Very Mild Visual Disturbances: 1-Very Mild Sensitivity Headache: 2-Mild CIWA-Ar Total Score: 17 BHS Progress Note (SOAP) Subjective: ALERT,IRRITABLE,ANXIOUS,INTERRUPTED SLEEP,TREMOR Objective: 10/25/17 11:08 Vital Signs Temperature 99.3 F 10/25/17 09:19 Pulse Rate 75 10/25/17 09:19 Respiratory Rate 18 10/25/17 09:19 Blood Pressure 115/83 10/25/17 09:19 O2 Sat by Pulse Oximetry (%) EKG NSR,NORMAL ECG Laboratory Last Values WBC 4.9 K/mm3 (4.0-10.0) 10/25/17 07:00 RBC 4.07 M/mm3 (4.00-5.60) 10/25/17 07:00 Hgb 14.6 GM/dL (11.7-16.9) 10/25/17 07:00 Hct 42.5 % (35.4-49) 10/25/17 07:00 MCV 104.3 fl (80-96) H 10/25/17 07:00 MCH 35.8 pg (25.7-33.7) H 10/25/17 07:00 MCHC 34.3 g/dl (32.0-35.9) 10/25/17 07:00 RDW 13.5 % (11.9-15.9) 10/25/17 07:00 Plt Count 211 K/MM3 (134-434) 10/25/17 07:00 MPV 8.7 fl (7.5-11.1) 10/25/17 07:00 Urine Color Yellow 10/24/17 22:00 Urine Appearance Clear 10/24/17 22:00 Urine pH 5.0 (5.0-8.0) 10/24/17 22:00 Ur Specific [place] 1.014 (1.001-1.035) 10/24/17 22:00 Urine Protein Negative (NEGATIVE) 10/24/17 22:00 Urine Glucose (UA) Negative (NEGATIVE) 10/24/17 22:00 Urine Ketones Negative (NEGATIVE) 10/24/17 22:00 Urine Blood Negative (NEGATIVE) 10/24/17 22:00 Urine Nitrite Negative (NEGATIVE) 10/24/17 22:00 Urine Bilirubin Negative (<2.0 mg/dL) 10/24/17 22:00 Urine Urobilinogen 2.0 mg/dL (0.2-1.0) 10/24/17 22:00 Ur Leukocyte Esterase Negative (NEGATIVE) 10/24/17 22:00 LABS PENDING Assessment: 10/25/17 11:09 WITHDRAWAL SYMPTOM Plan: CONTINUE DETOX
[2017-10-26] MEDS: chlordiazePOXIDE HCL 25 MG CAPSULE PO SCH ×2 (06:14→11:04)
[2017-10-26 10:21] VITALS: BP 124/74; PULSE 89; TEMP 98.4
[2017-10-26] MEDS: NICOTINE 14 MG/24 HOURS TOPICAL PATCH TD SCH (11:04)
[2017-10-26] MEDS: PRENATAL VITAMINS W/ FOLIC ACID TABLET (FP) PO SCH (11:04)
--- NOTE | 2017-10-26 11:25 | PN ---
S CIWA - CIWA Score Nausea/Vomitin Muscle Tremors: 2 Anxiety: 2 Agitation: 2 Paroxysmal Sweats: 1-Minimal Palms Moist Orientation: 0-Oriented Tacttile Disturbances: 1-Very Mild Itch/Numbness Auditory Disturbances: 1-Very Mild Visual Disturbances: 0-None Headache: 2-Mild CIWA-Ar Total Score: 14 BHS Progress Note (SOAP) Subjective: ALERT,IRRITABLE,ANXIOUS,INTERRUPTED SLEEP PAIN IN THE BODY Objective: 10/26/17 11:24 Vital Signs Temperature 98.4 F 10/26/17 10:20 Pulse Rate 89 10/26/17 10:20 Respiratory Rate 20 10/26/17 10:20 Blood Pressure 124/74 10/26/17 10:20 O2 Sat by Pulse Oximetry (%) Laboratory Last Values WBC 4.9 K/mm3 (4.0-10.0) 10/25/17 07:00 RBC 4.07 M/mm3 (4.00-5.60) 10/25/17 07:00 Hgb 14.6 GM/dL (11.7-16.9) 10/25/17 07:00 Hct 42.5 % (35.4-49) 10/25/17 07:00 MCV 104.3 fl (80-96) H 10/25/17 07:00 MCH 35.8 pg (25.7-33.7) H 10/25/17 07:00 MCHC 34.3 g/dl (32.0-35.9) 10/25/17 07:00 RDW 13.5 % (11.9-15.9) 10/25/17 07:00 Plt Count 211 K/MM3 (134-434) 10/25/17 07:00 MPV 8.7 fl (7.5-11.1) 10/25/17 07:00 Sodium 139 mmol/L (136-145) 10/25/17 07:00 Potassium 3.9 mmol/L (3.5-5.1) 10/25/17 07:00 Chloride 101 mmol/L (98-107) 10/25/17 07:00 Carbon Dioxide 31 mmol/L (21-32) 10/25/17 07:00 Anion Gap 7 (8-16) L 10/25/17 07:00 BUN 10 mg/dL (7-18) D 10/25/17 07:00 Creatinine 0.9 mg/dL (0.7-1.3) 10/25/17 07:00 Creat Clearance w eGFR > 60 (>60) 10/25/17 07:00 Random Glucose 73 mg/dL (74-106) L 10/25/17 07:00 Calcium 9.5 mg/dL (8.5-10.1) 10/25/17 07:00 Total Bilirubin 1.0 mg/dL (0.2-1.0) 10/25/17 07:00 AST 23 U/L (15-37) 10/25/17 07:00 ALT 20 U/L (12-78) 10/25/17 07:00 Alkaline Phosphatase 90 U/L (45-117) 10/25/17 07:00 Total Protein 7.1 g/dl (6.4-8.2) 10/25/17 07:00 Albumin 3.9 g/dl (3.4-5.0) 10/25/17 07:00 Urine Color Yellow 10/24/17 22:00 Urine Appearance Clear 10/24/17 22:00 Urine pH 5.0 (5.0-8.0) 10/24/17 22:00 Ur Specific [place] 1.014 (1.001-1.035) 10/24/17 22:00 Urine Protein Negative (NEGATIVE) 10/24/17 22:00 Urine Glucose (UA) Negative (NEGATIVE) 10/24/17 22:00 Urine Ketones Negative (NEGATIVE) 10/24/17 22:00 Urine Blood Negative (NEGATIVE) 10/24/17 22:00 Urine Nitrite Negative (NEGATIVE) 10/24/17 22:00 Urine Bilirubin Negative (<2.0 mg/dL) 10/24/17 22:00 Urine Urobilinogen 2.0 mg/dL (0.2-1.0) 10/24/17 22:00 Ur Leukocyte Esterase Negative (NEGATIVE) 10/24/17 22:00 Assessment: 10/26/17 11:24 WITHDRAWAL SYMPTOM Plan: CONTINUE DETOX
--- NOTE | 2017-10-26 11:27 | PN ---
S Progress Note Note: PATIENT DID NOT WANT TO COMPLETE TREATMENT,SIGNED RELEASE AMA,ATTEMPT TO CONVINCE PATIENT TO STAY WITH NO AVAIL
--- NOTE | 2017-10-26 11:32 | DS ---
[facility] Detox Discharge Summary Admission Date: 10/24/17 Discharge Date: 10/26/17 - History Present History: Alcohol Dependence, Cannabis Dependence Additional Comments: PATIENT DID NOT WANT TO COMPLETE TREATMENT,SIGNED RELEASE AMA Pertinent Past History: NICOTINE DEPENDENCE SEIZURE - Physical Exam Results Vital Signs: Vital Signs Temperature 98.4 F 10/26/17 10:20 Pulse Rate 89 10/26/17 10:20 Respiratory Rate 20 10/26/17 10:20 Blood Pressure 124/74 10/26/17 10:20 O2 Sat by Pulse Oximetry (%) Pertinent Admission Physical Exam Findings: WITHDRAWAL SIGNS AND SYMPTOM Vital Signs Temperature 98.4 F 10/26/17 10:20 Pulse Rate 89 10/26/17 10:20 Respiratory Rate 20 10/26/17 10:20 Blood Pressure 124/74 10/26/17 10:20 O2 Sat by Pulse Oximetry (%) Laboratory Last Values WBC 4.9 K/mm3 (4.0-10.0) 10/25/17 07:00 RBC 4.07 M/mm3 (4.00-5.60) 10/25/17 07:00 Hgb 14.6 GM/dL (11.7-16.9) 10/25/17 07:00 Hct 42.5 % (35.4-49) 10/25/17 07:00 MCV 104.3 fl (80-96) H 10/25/17 07:00 MCH 35.8 pg (25.7-33.7) H 10/25/17 07:00 MCHC 34.3 g/dl (32.0-35.9) 10/25/17 07:00 RDW 13.5 % (11.9-15.9) 10/25/17 07:00 Plt Count 211 K/MM3 (134-434) 10/25/17 07:00 MPV 8.7 fl (7.5-11.1) 10/25/17 07:00 Sodium 139 mmol/L (136-145) 10/25/17 07:00 Potassium 3.9 mmol/L (3.5-5.1) 10/25/17 07:00 Chloride 101 mmol/L (98-107) 10/25/17 07:00 Carbon Dioxide 31 mmol/L (21-32) 10/25/17 07:00 Anion Gap 7 (8-16) L 10/25/17 07:00 BUN 10 mg/dL (7-18) D 10/25/17 07:00 Creatinine 0.9 mg/dL (0.7-1.3) 10/25/17 07:00 Creat Clearance w eGFR > 60 (>60) 10/25/17 07:00 Random Glucose 73 mg/dL (74-106) L 10/25/17 07:00 Calcium 9.5 mg/dL (8.5-10.1) 10/25/17 07:00 Total Bilirubin 1.0 mg/dL (0.2-1.0) 10/25/17 07:00 AST 23 U/L (15-37) 10/25/17 07:00 ALT 20 U/L (12-78) 10/25/17 07:00 Alkaline Phosphatase 90 U/L (45-117) 10/25/17 07:00 Total Protein 7.1 g/dl (6.4-8.2) 10/25/17 07:00 Albumin 3.9 g/dl (3.4-5.0) 10/25/17 07:00 Urine Color Yellow 10/24/17 22:00 Urine Appearance Clear 10/24/17 22:00 Urine pH 5.0 (5.0-8.0) 10/24/17 22:00 Ur Specific [place] 1.014 (1.001-1.035) 10/24/17 22:00 Urine Protein Negative (NEGATIVE) 10/24/17 22:00 Urine Glucose (UA) Negative (NEGATIVE) 10/24/17 22:00 Urine Ketones Negative (NEGATIVE) 10/24/17 22:00 Urine Blood Negative (NEGATIVE) 10/24/17 22:00 Urine Nitrite Negative (NEGATIVE) 10/24/17 22:00 Urine Bilirubin Negative (<2.0 mg/dL) 10/24/17 22:00 Urine Urobilinogen 2.0 mg/dL (0.2-1.0) 10/24/17 22:00 Ur Leukocyte Esterase Negative (NEGATIVE) 10/24/17 22:00 - Medication Discharge Medications: Ambulatory Orders Divalproex [Depakote -] 250 mg PO BID 08/01/15 Fluoxetine HCl [Prozac -] 20 mg PO DAILY 08/01/15 - Diagnosis (1) Alcohol dependence with uncomplicated withdrawal Current Visit: Yes Status: Chronic (2) Cannabis dependence, uncomplicated Current Visit: Yes Status: Chronic (3) Nicotine dependence Current Visit: Yes Status: Chronic Qualifiers: Nicotine product type: cigarettes Substance use status: uncomplicated Qualified Code(s): F17.210 - Nicotine dependence, cigarettes, uncomplicated (4) Seizures Current Visit: Yes Status: Chronic - AMA Did Patient Leave Against Medical Advice: Yes
[2017-10-26] MEDS ORDERED: chlordiazePOXIDE 5 MG CAPSULE PO SCH (23:00)
[2017-10-27] MEDS ORDERED: chlordiazePOXIDE HCL 10 MG CAPSULE PO SCH (23:00)
== END 2017-10-26 11:52 | disposition left against medical advice (07) | DRG 770 ==
LOC: YASAS 15:00 → Y6N 18:40
PROVIDERS: ADMIT Internal Medicine; ATTEND Internal Medicine
PROC: HZ2ZZZZ Detoxification Services for Substance Abuse Treatment (ICD-10-PCS; principal; 2017-10-24)
DX: F10.230 Alcohol dependence with withdrawal, uncomplicated (principal); F12.20 Cannabis dependence, uncomplicated; F17.210 Nicotine dependence, cigarettes, uncomplicated; F20.9 Schizophrenia, unspecified; Z86.69 Personal history of other diseases of the nervous system and sense organs; Z59.0 Homelessness; Z90.2 Acquired absence of lung [part of]
CPT/HCPCS: 36415; 80053; 81003; 85027; 86593; 93005; 93010

== ENCOUNTER 2017-11-28 12:20 | Inpatient (IN) | payer OTHER ==
[2017-11-28 13:34] VITALS: BMI 20.5
--- NOTE | 2017-11-28 15:20 | HP ---
CIWA Score - CIWA Score Nausea/Vomitin-No Nausea/No Vomiting Muscle Tremors: 4-Moderate,w/Arms Extend Anxiety: 4-Mod. Anxious/Guarded Agitation: 4-Moderately Restless Paroxysmal Sweats: 1-Minimal Palms Moist Orientation: 0-Oriented Tacttile Disturbances: 2-Mild Itch/Numbness/Burn Auditory Disturbances: 0-None Visual Disturbances: 0-None Headache: 0-None Present CIWA-Ar Total Score: 15 Admission ROS S - HPI Chief Complaint: alcohol withdrawal sx Allergies/Adverse Reactions: Allergies Allergy/AdvReac Type Severity Reaction Status Date / Time No Known Allergies Allergy Verified 11/28/17 15:22 History of Present Illness: 42 years old male with long history of alcohol nicotine dependence has seizure since last seizure 2011, last seizure medication 2005 "seizure from alcohol withdrawal" 2011 right lung partial removed right leg sciatic chronic Exam Limitations: No Limitations - Ebola screening Have you traveled outside of the country in the last 21 days: No Have you had contact with anyone from an Ebola affected area: No Have you been sick,other than usual withdrawal symptoms: No Do you have a fever: No - Review of Systems Constitutional: Loss of Appetite, Changes in sleep, Unintentional Wgt. Loss, Unexplained wgt Loss EENT: reports: No Symptoms Reported Respiratory: reports: No Symptoms reported Cardiac: reports: No Symptoms Reported GI: reports: Nausea, Poor Appetite, Poor Fluid Intake, Abdominal cramping : reports: No Symptoms Reported Musculoskeletal: reports: Joint Pain (right leg pain) Integumentary: reports: No Symptoms Reported Neuro: reports: Seizure (2005 "alcohol withdrawal"), Tremors Endocrine: reports: No Symptoms Reported Hematology: reports: No Symptoms Reported Psychiatric: reports: Judgement Intact, Orientated x3, Anxious, Depressed Other Systems: Reviewed and Negative Patient History - Patient Medical History Hx Anemia: No Hx Asthma: No Hx Chronic Obstructive Pulmonary Disease (COPD): No Hx Cancer: No Hx Cardiac Disorders: No Hx Congestive Heart Failure: No Hx Hypertension: No Hx Hypercholesterolemia: No Hx Pacemaker: No HX Cerebrovascular Accident: No Hx Seizures: Yes (2011 R/T ALCOHOL- nnot on medication) Hx Dementia: No Hx Diabetes: No Hx Gastrointestinal Disorders: No Hx Liver Disease: No Hx Genitourinary Disorders: No Hx Sexually Transmitted Disorders: No Hx Renal Disease (ESRD): No Hx Thyroid Disease: No Hx Human Immunodeficiency Virus (HIV): No Hx Hepatitis C: No Hx Depression: Yes (Not on medication) Hx Suicide Attempt: No (Denies suicidal ideation at this time) Hx Bipolar Disorder: Yes (not on any meds) Hx Schizophrenia: No - Patient Surgical History Past Surgical History: Yes Hx Neurologic Surgery: No Hx Cataract Extraction: No Hx Cardiac Surgery: No Hx Lung Surgery: Yes (PARTIAL R lung LOBECTOMY removed in 2005) Hx Breast Surgery: No Hx Breast Biopsy: No Hx Abdominal Surgery: No Hx Appendectomy: No Hx Cholecystectomy: No Hx Genitourinary Surgery: No Hx Orthopedic Surgery: No Anesthesia Reaction: Yes - PPD History Previous Implant?: Yes Documented Results: Negative w/proof Implanted On Prior [facility] Admission?: Yes Date: 09/26/17 Results: 0MM PPD to be Administered?: No - Smoking Cessation Smoking history: Current every day smoker Have you smoked in the past 12 months: Yes Aproximately how many cigarettes per day: 10 Cigars Per Day: 0 Hx Chewing Tobacco Use: No Initiated information on smoking cessation: Yes 'Breaking Loose' booklet given: 11/28/17 - Substance & Tx. History Hx Alcohol Use: Yes Hx Substance Use: Yes Substance Use Type: Alcohol, Marijuana Hx Substance Use Treatment: Yes (10/2017 [facility] - Substances Abused Cocaine Route: Inhalation Frequency: 1-2 times per week Amount used: $80 Age of first use: 15 Date of Last Use: 10/15/17 Marijuana/Hashish Route: Smoking Frequency: Daily Amount used: $40 Age of first use: 14 Date of Last Use: 11/27/17 alcoholbeer/vodka Route: Oral Frequency: Daily Amount used: 2-6 packs /3 pts. Age of first use: 14 Date of Last Use: 11/28/17 Family Disease History - Family Disease History Family Disease History: Other: Father (no contact), Mother (HX/O CRACK AND ALCOHOL; HTN), Brother (no brother), Sister (HX/O CRACK AND ALCHOLISM) Admission Physical Exam BHS - Vital Signs Vital Signs: Vital Signs - 24 hr 11/28/17 13:33 Temperature 97.8 F Pulse Rate 96 H Respiratory 20 Rate Blood Pressure 104/74 - Physical General Appearance: Yes: Appropriately Dressed, Mild Distress, Thin, Tremorous, Irritable, Sweating, Anxious HEENTM: Yes: Hearing grossly Normal, Normocephalic, Normal Voice Respiratory: Yes: Chest Non-Tender, Decreased Breath Sounds (right lung), No Respiratory Distress, No Accessory Muscle Use Neck: Yes: Supple, Trachea in good position Breast: Yes: Breasts Symetrical, No Discharge Cardiology: Yes: Regular Rhythm, S1, S2, Tachycardia Abdominal: Yes: Normal Bowel Sounds, Non Tender, Flat Genitourinary: Yes: Within Normal Limits Back: Yes: Normal Inspection Musculoskeletal: Yes: full range of Motion, Gait Steady Extremities: Yes: Normal Inspection, Normal Range of Motion, Non-Tender, Tremors Neurological: Yes: Fully Oriented, Alert, Motor Strength 5/5, Normal Response, Disoriented, Depressed Affect Integumentary: Yes: Warm Lymphatic: Yes: Within Normal Limits - Diagnostic (1) Weight loss Current Visit: Yes Status: Acute (2) Nicotine dependence Current Visit: Yes Status: Acute Qualifiers: Nicotine product type: cigarettes Substance use status: in withdrawal Qualified Code(s): F17.213 - Nicotine dependence, cigarettes, with withdrawal (3) Alcohol dependence with uncomplicated withdrawal Current Visit: Yes Status: Acute (4) Bipolar II disorder Current Visit: Yes Status: Suspected (5) Status post partial lobectomy of lung Current Visit: Yes Status: Resolved Comment: right lung partial 2005 or 2011 not remember Cleared for Admission [facility] - Detox or Rehab [facility] Level of Care: Medically Managed Detox Regimen/Protocol: Librium [facility] Breath Alcohol Content Breath Alcohol Content: 0.064 Urine Drug Screen - Control Is Test Valid: Yes - Results Drug Screen Negative: No Urine Drug Screen Results: THC-Marijuana
[2017-11-28] MEDS ORDERED: MENTHOL/PHENOL 1 EACH UD MM PRN (15:28)
[2017-11-28] MEDS ORDERED: MAG HYDROX/AL HYDROX/SIMETH 30 ML UNIT-DOSE CUP PO PRN (15:28)
[2017-11-28] MEDS ORDERED: LOPERAMIDE HCL 2 MG CAPSULE PO PRN (15:28)
[2017-11-28] MEDS ORDERED: NICOTINE POLACRILEX 2 MG GUM BC PRN (15:28)
[2017-11-28] MEDS ORDERED: MAGNESIUM CITRATE 300 ML BOTTLE PO PRN (15:28)
[2017-11-28] MEDS ORDERED: chlordiazePOXIDE HCL 25 MG CAPSULE PO PRN (15:28)
[2017-11-28] MEDS ORDERED: IBUPROFEN 400 MG TABLET (FP) PO PRN (15:28)
[2017-11-28] MEDS ORDERED: ACETAMINOPHEN 325 MG TABLET (FP) PO PRN (15:28)
[2017-11-28] MEDS ORDERED: guaiFENesin/D-METHORPHAN HB 10 ML UNIT-DOSE CUPS PO PRN (15:28)
[2017-11-28] MEDS ORDERED: P-EPHED 60MG/TRIPROLIDI 2.5MG TABLET PO PRN (15:28)
[2017-11-28] MEDS ORDERED: MAGNESIUM HYDROX 2400MG/30ML ORAL SUSPENSION 30 ML CUP PO PRN (15:28)
[2017-11-28] MEDS: NICOTINE 14 MG/24 HOURS TOPICAL PATCH TD SCH (18:58)
[2017-11-28] MEDS ORDERED: MELATONIN 5 MG TABLETS PO PRN (22:00)
[2017-11-28] MEDS: THIAMINE HCL 100 MG TABLET (FP) PO SCH (22:10)
[2017-11-28] MEDS: chlordiazePOXIDE HCL 25 MG CAPSULE PO SCH (22:10)
[2017-11-29] MEDS: chlordiazePOXIDE HCL 25 MG CAPSULE PO SCH ×4 (05:14→22:48)
--- NOTE | 2017-11-29 10:02 | HP ---
Psychiatrist Admission - Data Vital Signs: Vital Signs - 24 hr 11/28/17 11/28/17 11/29/17 13:33 22:27 00:30 Temperature 97.8 F 98.6 F Pulse Rate 96 H 70 Respiratory 20 20 18 Rate Blood Pressure 104/74 119/79 11/29/17 11/29/17 11/29/17 03:30 06:14 06:30 Temperature 98.6 F Pulse Rate 74 Respiratory 18 18 18 Rate Blood Pressure 118/75 11/29/17 09:31 Temperature 98 F Pulse Rate 59 L Respiratory 18 Rate Blood Pressure 126/84 Allergies/Adverse Reactions: Allergies Allergy/AdvReac Type Severity Reaction Status Date / Time No Known Allergies Allergy Verified 11/28/17 15:22
--- NOTE | 2017-11-29 10:03 | CONSULT ---
[facility] Psychiatric Consult - Data Date of interview: 11/29/17 Admission source: Self-referred Identifying data: Mr York is a 42 years old single Black male, unemployed on SSI, homeless seeking detox treatment for alcohol, cocaine and marijuana Substance Abuse History: Reports history of alcohol, cocaine and marijuana use. Refer to addiction counselor' note for further information Medical History: Significant for seizure Disorder and history of surgery for partial right lung lobectomy. Smokes 10 cigarettes daily Psychiatric History: Patient is uncooperative with the interview. However he is known to senior writer from a previous admission in July 2013. He reported being diagnosed with Bipolar/Schizophrenia approximately 12 years ago. Reported history of multiple psychiatric hospitalizations with the most recent being 6-7 years ago. He cannot identify the institutions and their location. Reports non- compliance with psychiatric outpatient services and medication. Claims that he stopped taking medications years ago and used to be on Prozac 20mg po daily and Depakote 250 mg po BID. He does not want to take any psychotropic medication at this time At present, feels irritable but reports sleeping well Physical/Sexual Abuse/Trauma History: Denies history of emotional, physical or sexual abuse Additional Comment: Reports history of multiple previous arrests including 2 felony convictions. Denies being on parole/probation currently Mental Status Exam - Mental Status Exam Alert and Oriented to: Time, Place, Person Cognitive Function: Fair Patient Appearance: Well Groomed Mood: Irritable Affect: Appropriate Patient Behavior: Uncooperative Speech Pattern: Clear Voice Loudness: Normal Thought Process: Intact, Goal Oriented Thought Disorder: Not Present Hallucinations: Denies Suicidal Ideation: Denies Homicidal Ideation: Denies Insight/Judgement: Poor Sleep: Well Appetite: Good Muscle strength/Tone: Normal Gait/Station: Normal Psychiatric Findings - Problem List ([place] 1, 2,3) (1) Alcohol dependence with uncomplicated withdrawal Current Visit: Yes Status: Acute (2) Cocaine dependence Current Visit: Yes Status: Acute Qualifiers: Substance use status: uncomplicated Qualified Code(s): F14.20 - Cocaine dependence, uncomplicated (3) Cannabis dependence Current Visit: No Status: Acute (4) Schizoaffective disorder Current Visit: Yes Status: Chronic (5) Substance induced mood disorder Current Visit: Yes Status: Acute (6) Nicotine dependence Current Visit: Yes Status: Acute Qualifiers: Nicotine product type: cigarettes Substance use status: in withdrawal Qualified Code(s): F17.213 - Nicotine dependence, cigarettes, with withdrawal (7) Status post partial lobectomy of lung Current Visit: Yes Status: Resolved Comment: right lung partial 2005 or 2011 not remember (8) Seizures Current Visit: Yes Status: Suspected - Initial Treatment Plan Initial Treatment Plan: Continue inpatient detoxification
[2017-11-29 10:17] LABS: HEMATOCRIT 38.6 % (35.4-49); HEMOGLOBIN 13.5 GM/dL (11.7-16.9); MCH 36.5 pg (25.7-33.7); MCHC 34.9 g/dl (32.0-35.9); MEAN CELL VOLUME 104.5 fl (80-96); MEAN PLT VOLUME 8.6 fl (7.5-11.1); PLATELET COUNT 237 K/MM3 (134-434); RBC 3.69 M/mm3 (4.00-5.60); RDW 13.7 % (11.9-15.9); WHITE BLOOD COUNT 4.3 K/mm3 (4.0-10.0)
[2017-11-29] MEDS: PRENATAL VITAMINS W/ FOLIC ACID TABLET (FP) PO SCH (10:22)
[2017-11-29] MEDS: NICOTINE 14 MG/24 HOURS TOPICAL PATCH TD SCH (10:22)
[2017-11-29 10:23] LABS: CHLORIDE 100 mmol/L (98-107); POTASSIUM 4.3 mmol/L (3.5-5.1); SODIUM 139 mmol/L (136-145)
[2017-11-29 10:47] LABS: ALK PHOS 88 U/L (45-117); ANION GAP 11 (8-16); BILIRUBIN,TOTAL 0.8 mg/dL (0.2-1.0); BLOOD UREA NITROGEN 15 mg/dL (7-18); CALCIUM 9.1 mg/dL (8.5-10.1); CO2 28 mmol/L (21-32); GLUCOSE,RANDOM 102 mg/dL (74-106); SGOT/AST 31 U/L (15-37); SGPT/ALT 23 U/L (12-78)
--- NOTE | 2017-11-29 11:10 | PN ---
S CIWA - CIWA Score Nausea/Vomitin-No Nausea/No Vomiting Muscle Tremors: 5 Anxiety: 3 Agitation: 3 Paroxysmal Sweats: 1-Minimal Palms Moist Orientation: 0-Oriented Tacttile Disturbances: 0-None Auditory Disturbances: 0-None Visual Disturbances: 0-None Headache: 0-None Present CIWA-Ar Total Score: 12 BHS Progress Note (SOAP) Subjective: ANXIETY,SLIGHT TREMORS,CHILLS, FATIGUE. Objective: 11/29/17 11:09 Vital Signs 11/29/17 11/29/17 11/29/17 03:30 06:14 06:30 Temperature 98.6 F Pulse Rate 74 Respiratory 18 18 18 Rate Blood Pressure 118/75 11/29/17 09:31 Temperature 98 F Pulse Rate 59 L Respiratory 18 Rate Blood Pressure 126/84 Laboratory Tests 11/29/17 11/29/17 06:00 06:00 WBC 4.3 RBC 3.69 L Hgb 13.5 Hct 38.6 MCV 104.5 H MCH 36.5 H MCHC 34.9 RDW 13.7 Plt Count 237 MPV 8.6 Sodium 139 Potassium 4.3 Chloride 100 Carbon Dioxide 28 Anion Gap 11 BUN 15 D Creatinine 1.0 Creat Clearance w eGFR > 60 Random Glucose 102 D Calcium 9.1 Total Bilirubin 0.8 AST 31 D ALT 23 Alkaline Phosphatase 88 Total Protein 7.0 Albumin 4.0 OTHER LABS PENDING Assessment: 11/29/17 11:10 WITHDRAWAL SX Plan: CONTINUE DETOX INCREASE PO FLUIDS
--- NOTE | 2017-11-29 11:51 | EKG ---
Test Reason : Blood Pressure : / mmHG Vent. Rate : 067 BPM Atrial Rate : 067 BPM P-R Int : 122 ms QRS Dur : 088 ms QT Int : 386 ms P-R-T Axes : -22 075 061 degrees QTc Int : 407 ms NORMAL SINUS RHYTHM NORMAL ECG WHEN COMPARED WITH ECG OF 25-OCT-2017 02:03, NO SIGNIFICANT CHANGE WAS FOUND Confirmed by MARKUS BRYSON MD ([id number]) on 11/29/2017 11:51:07 AM Referred By: Confirmed By:MARKUS BRYSON MD
[2017-11-29 16:22] LABS: URINE APPEARANCE CLEAR; URINE BILIRUBIN NEGATIVE (<2.0 mg/dL); URINE COLOR YELLOW; URINE GLUCOSE (UA) NEGATIVE (NEGATIVE); URINE KETONE NEGATIVE (NEGATIVE); URINE LEUK ESTERASE NEGATIVE (NEGATIVE); URINE NITRITE NEGATIVE (NEGATIVE); URINE PROTEIN NEGATIVE (NEGATIVE); URINE UROBILINOGEN 4.0 E.U/dl mg/dL (0.2-1.0)
[2017-11-29] MEDS: THIAMINE HCL 100 MG TABLET (FP) PO SCH (22:48)
[2017-11-30] MEDS: chlordiazePOXIDE HCL 25 MG CAPSULE PO SCH (05:31)
[2017-11-30] MEDS ORDERED: diazePAM 5 MG TABLET PO ONE (10:12)
--- NOTE | 2017-11-30 10:20 | PN ---
S CIWA - CIWA Score Nausea/Vomitin Muscle Tremors: 4-Moderate,w/Arms Extend Anxiety: 5 Agitation: 4-Moderately Restless Paroxysmal Sweats: 1-Minimal Palms Moist Orientation: 0-Oriented Tacttile Disturbances: 0-None Auditory Disturbances: 0-None Visual Disturbances: 0-None Headache: 0-None Present CIWA-Ar Total Score: 17 BHS Progress Note (SOAP) Subjective: ANXIETY,SWEATS/CHILLS, UPSET STOMACH-STATES "THE LIBRIUM IS UPSETTING MY STOMACH ". PT DENIES VOMITING OR DIARRHEA. Objective: 11/30/17 10:19 Vital Signs 11/30/17 11/30/17 11/30/17 03:30 05:53 09:12 Temperature 97.1 F L 96.8 F L Pulse Rate 65 70 Respiratory 18 18 20 Rate Blood Pressure 108/74 99/72 Laboratory Tests 11/29/17 11/29/17 11/29/17 06:00 06:00 06:00 WBC 4.3 RBC 3.69 L Hgb 13.5 Hct 38.6 MCV 104.5 H MCH 36.5 H MCHC 34.9 RDW 13.7 Plt Count 237 MPV 8.6 Sodium 139 Potassium 4.3 Chloride 100 Carbon Dioxide 28 Anion Gap 11 BUN 15 D Creatinine 1.0 Creat Clearance w eGFR > 60 Random Glucose 102 D Calcium 9.1 Total Bilirubin 0.8 AST 31 D ALT 23 Alkaline Phosphatase 88 Total Protein 7.0 Albumin 4.0 Urine Color Urine Appearance Urine pH Ur Specific [place] Urine Protein Urine Glucose (UA) Urine Ketones Urine Blood Urine Nitrite Urine Bilirubin Urine Urobilinogen Ur Leukocyte Esterase RPR Titer Nonreactive 11/29/17 11:00 WBC RBC Hgb Hct MCV MCH MCHC RDW Plt Count MPV Sodium Potassium Chloride Carbon Dioxide Anion Gap BUN Creatinine Creat Clearance w eGFR Random Glucose Calcium Total Bilirubin AST ALT Alkaline Phosphatase Total Protein Albumin Urine Color Yellow Urine Appearance Clear Urine pH 6.0 Ur Specific [place] 1.020 Urine Protein Negative Urine Glucose (UA) Negative Urine Ketones Negative Urine Blood Negative Urine Nitrite Negative Urine Bilirubin Negative Urine Urobilinogen 4.0 e.u/dl Ur Leukocyte Esterase Negative RPR Titer Assessment: 11/30/17 10:19 WITHDRAWAL SX Plan: CONTINUE DETOX D/C LIBRIUM START VALIUM REGIMEN
[2017-11-30] MEDS: PRENATAL VITAMINS W/ FOLIC ACID TABLET (FP) PO SCH (10:40)
[2017-11-30] MEDS: NICOTINE 14 MG/24 HOURS TOPICAL PATCH TD SCH (10:41)
[2017-11-30] MEDS ORDERED: diazePAM 5 MG TABLET PO SCH (22:00)
[2017-11-30] MEDS ORDERED: ONDANSETRON 4 MG TABLET PO ONE (22:29)
[2017-11-30] MEDS: THIAMINE HCL 100 MG TABLET (FP) PO SCH (22:34)
[2017-11-30] MEDS ORDERED: ONDANSETRON *ODT* 4 MG TABLET SL ONE (23:00)
[2017-11-30] MEDS ORDERED: chlordiazePOXIDE 5 MG CAPSULE PO SCH (23:00)
[2017-12-01 09:43] VITALS: BP 85/57; PULSE 99; TEMP 97.9
[2017-12-01] MEDS ORDERED: diazePAM 5 MG TABLET PO SCH (10:00)
[2017-12-01] MEDS: PRENATAL VITAMINS W/ FOLIC ACID TABLET (FP) PO SCH (10:47)
[2017-12-01] MEDS: NICOTINE 14 MG/24 HOURS TOPICAL PATCH TD SCH (10:47)
--- NOTE | 2017-12-01 11:54 | PN ---
S Progress Note (SOAP) Subjective: PT DECLINED TO CONTINUE WITH DETOX STATING "I'M TIRED OF TAKING MEDICATION. I JUST WANNA LEAVE ANYWAY'. ALL EFFORTS TO ENCOURAGE PT TO COMPLETE DETOX AND SEEK AFTERCARE FAILED. STATES "ILL GO TO MY OUTPATIENT". PT APPEARS VERY ANXIOUS BUT ALERT O X 3. DENIES ANY ACUTE DISTRESS. PT REPORTS PRIMARY CARE AT [facility]. Objective: 12/01/17 11:52 Vital Signs 12/01/17 12/01/17 06:14 09:42 Temperature 97 F L 97.9 F Pulse Rate 59 L 99 H Respiratory 18 20 Rate Blood Pressure 94/65 85/57 Laboratory Tests 11/29/17 11/29/17 11/29/17 06:00 06:00 06:00 WBC 4.3 RBC 3.69 L Hgb 13.5 Hct 38.6 MCV 104.5 H MCH 36.5 H MCHC 34.9 RDW 13.7 Plt Count 237 MPV 8.6 Sodium 139 Potassium 4.3 Chloride 100 Carbon Dioxide 28 Anion Gap 11 BUN 15 D Creatinine 1.0 Creat Clearance w eGFR > 60 Random Glucose 102 D Calcium 9.1 Total Bilirubin 0.8 AST 31 D ALT 23 Alkaline Phosphatase 88 Total Protein 7.0 Albumin 4.0 Urine Color Urine Appearance Urine pH Ur Specific [place] Urine Protein Urine Glucose (UA) Urine Ketones Urine Blood Urine Nitrite Urine Bilirubin Urine Urobilinogen Ur Leukocyte Esterase RPR Titer Nonreactive 11/29/17 11:00 WBC RBC Hgb Hct MCV MCH MCHC RDW Plt Count MPV Sodium Potassium Chloride Carbon Dioxide Anion Gap BUN Creatinine Creat Clearance w eGFR Random Glucose Calcium Total Bilirubin AST ALT Alkaline Phosphatase Total Protein Albumin Urine Color Yellow Urine Appearance Clear Urine pH 6.0 Ur Specific [place] 1.020 Urine Protein Negative Urine Glucose (UA) Negative Urine Ketones Negative Urine Blood Negative Urine Nitrite Negative Urine Bilirubin Negative Urine Urobilinogen 4.0 e.u/dl Ur Leukocyte Esterase Negative RPR Titer Assessment: 12/01/17 11:52 NAD Plan: PT SIGNED OUT AMA
--- NOTE | 2017-12-01 11:57 | DS ---
[facility] Detox Discharge Summary Admission Date: 11/28/17 Discharge Date: 12/01/17 - History Present History: Alcohol Dependence, Cocaine Dependence Additional Comments: PT SIGNED OUT AMA STATING"I'M TIRED FOR TAKING MEDICATION". ALERT O X 3. NAD. FOLLOW OF AT [facility] NEEDED. Pertinent Past History: PLEASE SEE DX BELOW - Physical Exam Results Vital Signs: Vital Signs Temperature 97.9 F 12/01/17 09:42 Pulse Rate 99 H 12/01/17 09:42 Respiratory Rate 20 12/01/17 09:42 Blood Pressure 85/57 12/01/17 09:42 O2 Sat by Pulse Oximetry (%) Pertinent Admission Physical Exam Findings: WITHDRAWAL SX Laboratory Tests 11/29/17 11/29/17 11/29/17 06:00 06:00 06:00 WBC 4.3 RBC 3.69 L Hgb 13.5 Hct 38.6 MCV 104.5 H MCH 36.5 H MCHC 34.9 RDW 13.7 Plt Count 237 MPV 8.6 Sodium 139 Potassium 4.3 Chloride 100 Carbon Dioxide 28 Anion Gap 11 BUN 15 D Creatinine 1.0 Creat Clearance w eGFR > 60 Random Glucose 102 D Calcium 9.1 Total Bilirubin 0.8 AST 31 D ALT 23 Alkaline Phosphatase 88 Total Protein 7.0 Albumin 4.0 Urine Color Urine Appearance Urine pH Ur Specific [place] Urine Protein Urine Glucose (UA) Urine Ketones Urine Blood Urine Nitrite Urine Bilirubin Urine Urobilinogen Ur Leukocyte Esterase RPR Titer Nonreactive 11/29/17 11:00 WBC RBC Hgb Hct MCV MCH MCHC RDW Plt Count MPV Sodium Potassium Chloride Carbon Dioxide Anion Gap BUN Creatinine Creat Clearance w eGFR Random Glucose Calcium Total Bilirubin AST ALT Alkaline Phosphatase Total Protein Albumin Urine Color Yellow Urine Appearance Clear Urine pH 6.0 Ur Specific [place] 1.020 Urine Protein Negative Urine Glucose (UA) Negative Urine Ketones Negative Urine Blood Negative Urine Nitrite Negative Urine Bilirubin Negative Urine Urobilinogen 4.0 e.u/dl Ur Leukocyte Esterase Negative RPR Titer - Treatment Hospital Course: Discharged Condition Good - Medication Discharge Medications: Ambulatory Orders Divalproex [Depakote -] 250 mg PO BID 08/01/15 Fluoxetine HCl [Prozac -] 20 mg PO DAILY 08/01/15 - Diagnosis (1) Alcohol dependence with uncomplicated withdrawal Current Visit: Yes Status: Acute (2) Cocaine dependence Current Visit: Yes Status: Acute Qualifiers: Substance use status: uncomplicated Qualified Code(s): F14.20 - Cocaine dependence, uncomplicated (3) Weight loss Current Visit: Yes Status: Acute (4) Nicotine dependence Current Visit: Yes Status: Acute Qualifiers: Nicotine product type: cigarettes Substance use status: in withdrawal Qualified Code(s): F17.213 - Nicotine dependence, cigarettes, with withdrawal (5) Seizures Current Visit: Yes Status: Suspected - AMA Did Patient Leave Against Medical Advice: Yes (AMA)
[2017-12-01] MEDS ORDERED: chlordiazePOXIDE HCL 10 MG CAPSULE PO SCH (23:00)
[2017-12-02] MEDS ORDERED: diazePAM 5 MG TABLET PO SCH (10:00)
== END 2017-12-01 11:15 | disposition left against medical advice (07) | DRG 770 ==
LOC: YASAS 12:20 → Y3N 16:56
PROVIDERS: ADMIT Internal Medicine; ATTEND Internal Medicine
PROC: HZ2ZZZZ Detoxification Services for Substance Abuse Treatment (ICD-10-PCS; principal; 2017-11-28)
DX: F10.230 Alcohol dependence with withdrawal, uncomplicated (principal); F14.20 Cocaine dependence, uncomplicated; F12.20 Cannabis dependence, uncomplicated; F17.213 Nicotine dependence, cigarettes, with withdrawal; F25.9 Schizoaffective disorder, unspecified; F19.24 Other psychoactive substance dependence with psychoactive substance-induced mood disorder; R56.9 Unspecified convulsions; R63.4 Abnormal weight loss; Z68.24 Body mass index [BMI] 24.0-24.9, adult; Z90.2 Acquired absence of lung [part of]; Z59.0 Homelessness
CPT/HCPCS: 36415; 80053; 81003; 85027; 86593; 93005; 93010; Q0162

== ENCOUNTER 2019-04-05 13:00 | Inpatient (IN) | payer OTHER ==
[2019-04-05 19:17] VITALS: BMI 22.4
--- NOTE | 2019-04-05 20:59 | HP ---
CIWA Score Nausea/Vomitin-No Nausea/No Vomiting Muscle Tremors: None Anxiety: 4-Mod. Anxious/Guarded Agitation: 4-Moderately Restless Paroxysmal Sweats: 3 Orientation: 3-Disoriented Date>2 days Tacttile Disturbances: 2-Mild Itch/Numbness/Burn Auditory Disturbances: 0-None Visual Disturbances: 0-None Headache: 0-None Present CIWA-Ar Total Score: 16 - Admission Criteria OASAS Guidelines: Admission for Medically Managed Detox: Requires at least one of the followin. CIWA greater than 12 2. Seizures within the past 24 hours 3. Delirium tremens within the past 24 hours 4. Hallucinations within the past 24 hours 5. Acute intervention needed for co occurring medical disorder 6. Acute intervention needed for co occurring psychiatric disorder 7. Severe withdrawal that cannot be handled at a lower level of care (continued vomiting, continued diarrhea, abnormal vital signs) requiring intravenous medication and/or fluids 8. Patient presents the following: CIWA greater than 12 Admission Criteria Met: Admission criteria met Admission ROS [facility] [place] [facility] [employer] Chief Complaint: C/O WITHDRAWAL SX'S Allergies/Adverse Reactions: Allergies Allergy/AdvReac Type Severity Reaction Status Date / Time No Known Allergies Allergy Verified 04/05/19 19:12 History of Present Illness: HERE FOR ALCOHOL DETOX. HE IS SELF REFERRED. LAST HERE 11/2017. PRESENTS TODAY WITH C/O WITHDRAWAL SX. REPORTS DAILY ALCOHOL INTAKE. LAST DRANK 1 DAY AGO. + CIWA, + EYE COLLET GLUER. REPORTS MOST RECENT CLEAN TIME 2 MONTHS RELAPSING 1 WEEK AGO. REPORTS EPISODE OF BLACK OUTS AND SEIZURE. LAST SEIZURE 2004. HAS HX OF EPILEPTIC SZ. HX/O AUDITORY HALLUCINATIONS ASSOCIATED WITH DRUG USE. BUT PRESENTLY DENIES. HOMELESS, UNEMPLOYED, DENIES LEGALS Exam Limitations: No Limitations - Ebola screening Have you traveled outside of the country in the last 21 days: No Have you had contact with anyone from an Ebola affected area: No - Review of Systems Constitutional: Chills EENT: reports: No Symptoms Reported Respiratory: reports: No Symptoms reported Cardiac: reports: No Symptoms Reported GI: reports: No Symptoms Reported : reports: No Symptoms Reported Musculoskeletal: reports: No Symptoms Reported Integumentary: reports: No Symptoms Reported Neuro: reports: Numbness, Seizure Endocrine: reports: No Symptoms Reported Hematology: reports: No Symptoms Reported Psychiatric: reports: Orientated x3, Agitated (IRRITABLE), Anxious, Depressed ( DENIES SI) Other Systems: Reviewed and Negative Patient History - Patient Medical History Hx Anemia: No Hx Asthma: No Hx Chronic Obstructive Pulmonary Disease (COPD): No Hx Cancer: No Hx Cardiac Disorders: No Hx Congestive Heart Failure: No Hx Hypertension: No Hx Hypercholesterolemia: No Hx Pacemaker: No HX Cerebrovascular Accident: No Hx Seizures: Yes (2013) Hx Dementia: No Hx Diabetes: No Hx Gastrointestinal Disorders: No Hx Liver Disease: No Hx Genitourinary Disorders: No Hx Sexually Transmitted Disorders: No Hx Renal Disease (ESRD): No Hx Thyroid Disease: No Hx Human Immunodeficiency Virus (HIV): No Hx Hepatitis C: No Hx Depression: Yes (NOT COMPLAINT WITH MEDS) Hx Suicide Attempt: No (DENIES) Hx Bipolar Disorder: Yes (NON COMPLAINT WITH MEDS) Hx Schizophrenia: No - Patient Surgical History Past Surgical History: Yes Hx Neurologic Surgery: No Hx Cataract Extraction: No Hx Cardiac Surgery: No Hx Lung Surgery: Yes (PARTIAL R lung LOBECTOMY removed in 2005) Hx Breast Surgery: No Hx Breast Biopsy: No Hx Abdominal Surgery: No Hx Appendectomy: No Hx Cholecystectomy: No Hx Genitourinary Surgery: No Hx Section: No Hx Orthopedic Surgery: No Anesthesia Reaction: Yes - PPD History Previous Implant?: Yes Documented Results: Negative w/proof Implanted On Prior [facility] Admission?: Yes Date: 09/26/17 Results: 0MM PPD to be Administered?: Yes - Smoking Cessation Smoking history: Current every day smoker Have you smoked in the past 12 months: Yes Aproximately how many cigarettes per day: 10 Cigars Per Day: 0 Hx Chewing Tobacco Use: No Initiated information on smoking cessation: Yes 'Breaking Loose' booklet given: 04/05/19 - Substance & Tx. History Hx Alcohol Use: Yes Hx Substance Use: Yes Substance Use Type: Alcohol, Marijuana Hx Substance Use Treatment: Yes ([facility]) - Substances abused Alcohol Substance route: Oral Frequency: Daily Amount used: 6/40oz of beer, 2 pints of vodka Age of first use: 17 Date of last use: 04/04/19 Marijuana/Hashish Substance route: Smoking Frequency: Daily Amount used: $10 Age of first use: 17 Date of last use: 04/04/19 Admission Physical Exam BHS - Vital Signs Vital Signs: Vital Signs - 24 hr 04/05/19 19:09 Temperature 97.0 F L Pulse Rate 59 L Respiratory 16 Rate Blood Pressure 147/92 - Physical General Appearance: Yes: Irritable, Anxious HEENTM: Yes: EOMI, Normocephalic, Normal Voice, BRITTANI, Pharynx Normal, Other ( missing teeth) Respiratory: Yes: Chest Non-Tender, Lungs Clear, Normal Breath Sounds, No Respiratory Distress, No Accessory Muscle Use Neck: Yes: No masses,lesions,Nodules, Supple, Trachea in good position Breast: Yes: Breast Exam Deferred Cardiology: Yes: Regular Rhythm, Regular Rate, S1, S2 Abdominal: Yes: Normal Bowel Sounds, Non Tender, Soft Genitourinary: Yes: Within Normal Limits Back: Yes: Normal Inspection Musculoskeletal: Yes: full range of Motion, Gait Steady Extremities: Yes: Normal Capillary Refill, Normal Range of Motion, Non-Tender Neurological: Yes: Alert, Motor Strength 5/5, Depressed Affect Integumentary: Yes: Dry, Cold Lymphatic: Yes: Within Normal Limits - Diagnostic (1) Homeless Current Visit: Yes Status: Suspected (2) Non compliance w medication regimen Current Visit: Yes Status: Suspected (3) Alcohol dependence with uncomplicated withdrawal Current Visit: Yes Status: Acute (4) Cannabis dependence Current Visit: Yes Status: Acute (5) Nicotine dependence Current Visit: Yes Status: Chronic Qualifiers: Nicotine product type: cigarettes Substance use status: in withdrawal Qualified Code(s): F17.213 - Nicotine dependence, cigarettes, with withdrawal (6) Substance induced mood disorder Current Visit: Yes Status: Suspected Cleared for Admission S - Detox or Rehab [facility] Level of Care: Medically Managed Detox Regimen/Protocol: Librium Claeared for Rehab Admission: No Breathalyzer - Breathalyzer Breathalyzer: 0 Urine Drug Screen - Test Device Lot number: [id number] Expiration date: 12/14/20 - Control Is test valid?: Yes - Results Drug screen NEGATIVE: Yes Urine drug screen results: THC-Marijuana Inpatient Rehab Admission - Rehab Decision to Admit Inpatient rehab admission?: No
[2019-04-05] MEDS ORDERED: MAGNESIUM HYDROX 2400MG/30ML ORAL SUSPENSION 30 ML CUP PO PRN (21:01)
[2019-04-05] MEDS ORDERED: ACETAMINOPHEN 325 MG TABLET (FP) PO PRN ×2 (21:01)
[2019-04-05] MEDS ORDERED: NICOTINE POLACRILEX 2 MG GUM BUC PRN (21:01)
[2019-04-05] MEDS ORDERED: BISMUTH SUBSALICYLATE 524 MG/30 ML UD PO PRN (21:01)
[2019-04-05] MEDS ORDERED: MAGNESIUM CITRATE 300 ML BOTTLE PO PRN (21:01)
[2019-04-05] MEDS ORDERED: ONDANSETRON *ODT* 4 MG TABLET SL PRN (21:01)
[2019-04-05] MEDS ORDERED: MAG HYDROX/AL HYDROX/SIMETH 30 ML UNIT-DOSE CUP PO PRN (21:01)
[2019-04-05] MEDS ORDERED: MENTHOL/PHENOL 1 EACH UD MM PRN (21:01)
[2019-04-05] MEDS ORDERED: P-EPHED 60MG/TRIPROLIDI 2.5MG TABLET PO PRN (21:01)
[2019-04-05] MEDS ORDERED: BACLOFEN 10 MG TABLET (FP) PO PRN (21:01)
[2019-04-05] MEDS ORDERED: hydrOXYzine PAMOATE 25 MG CAPSULE (FP) PO PRN (21:01)
[2019-04-05] MEDS ORDERED: IBUPROFEN 400 MG TABLET (FP) PO PRN (21:01)
[2019-04-05] MEDS ORDERED: DICYCLOMINE HCL 10 MG CAPSULE PO PRN (21:01)
[2019-04-05] MEDS ORDERED: chlordiazePOXIDE HCL 25 MG CAPSULE PO PRN (21:01)
[2019-04-05] MEDS ORDERED: MELATONIN 5 MG TABLETS PO PRN (21:01)
[2019-04-05] MEDS ORDERED: METHOCARBAMOL 500 MG TABLET PO PRN (21:01)
[2019-04-05] MEDS ORDERED: guaiFENesin 200 MG/10 ML 10 ML UNIT-DOSE CUPS PO PRN (21:01)
[2019-04-05] MEDS: THIAMINE HCL 100 MG TABLET (FP) PO SCH (22:22)
[2019-04-05] MEDS: chlordiazePOXIDE HCL 25 MG CAPSULE PO SCH (22:22)
[2019-04-06] MEDS: chlordiazePOXIDE HCL 25 MG CAPSULE PO SCH ×4 (08:05→22:16)
--- NOTE | 2019-04-06 10:08 | PN ---
S CIWA - CIWA Score Nausea/Vomitin-No Nausea/No Vomiting Muscle Tremors: 2 Anxiety: 2 Agitation: 2 Paroxysmal Sweats: 3 Orientation: 0-Oriented Tacttile Disturbances: 0-None Auditory Disturbances: 0-None Visual Disturbances: 0-None Headache: 2-Mild CIWA-Ar Total Score: 11 BHS Progress Note (SOAP) Subjective: c/o anxiety, sweats, headache, and mild shakes. Objective: 04/06/19 10:06 Vital Signs 04/06/19 04/06/19 04/06/19 03:30 06:00 09:29 Temperature 98.1 F 99.3 F Pulse Rate 59 L 63 Respiratory 16 18 18 Rate Blood Pressure 109/60 117/75 Labs pending. Assessment: 04/06/19 10:06 AOX3, in no acute respiratory distress. Full ROM, ambulating in the unit. Withdrawal symptoms. Plan: continue detox.
[2019-04-06] MEDS: NICOTINE 14 MG/24 HOURS TOPICAL PATCH TD SCH (11:01)
[2019-04-06] MEDS: PRENATAL VITAMINS W/ FOLIC ACID TABLET (FP) PO SCH (11:01)
[2019-04-06 11:19] LABS: ALBUMIN 3.6 g/dl (3.4-5.0); BILIRUBIN,TOTAL 0.3 mg/dL (0.2-1); BLOOD UREA NITROGEN 8.5 mg/dL (7-18); CALCIUM 9.1 mg/dL (8.5-10.1); CREATININE 0.9 mg/dL (0.55-1.3); POTASSIUM 4.5 mmol/L (3.5-5.1); TOT PROT 6.3 g/dl (6.4-8.2)
[2019-04-06 11:21] LABS: HEMOGLOBIN 13.8 GM/dL (11.7-16.9); MCH 34.2 pg (25.7-33.7); MCHC 33.7 g/dl (32.0-35.9); MEAN CELL VOLUME 101.7 fl (80-96); MEAN PLT VOLUME 8.5 fl (7.5-11.1); PLATELET COUNT 281 K/MM3 (134-434); RBC 4.04 M/mm3 (4.00-5.60); RDW 13.3 % (11.9-15.9); WHITE BLOOD COUNT 4.2 K/mm3 (4.0-10.0)
--- NOTE | 2019-04-06 15:24 | CONSULT ---
[facility] Psychiatric Consult - Data Date of interview: 04/06/19 Admission source: [facility] Identifying data: Readmission to [facility] for this 43 y/o AA male self- referred for detoxification (alcohol, cannabis). Seen [facility]. Patient is single, no dependents, homeless, unemployed and supported on SSI benefits. Substance Abuse History: Confirmed by patient. Details in current [facility] report as follows : Smoking history: Current every day smoker. Have you smoked in the past 12 months: Yes. Aproximately how many cigarettes per day: 10. Cigars Per Day: 0. Hx Chewing Tobacco Use: No. Initiated information on smoking cessation : Yes. 'Breaking Loose' booklet given: 04/05/19. - Substance & Tx. History. Hx Alcohol Use: Yes. Hx Substance Use: Yes. Substance Use Type: Alcohol, Marijuana. Hx Substance Use Treatment: Yes ([facility]). - Substances abused. Alcohol. Substance route: Oral. Frequency: Daily. Amount used: 6/ 40oz of beer, 2 pints of vodka. Age of first use: 17. Date of last use: . Marijuana/Hashish. Substance route: Smoking. Frequency: Daily. Amount used: $10. Age of first use: 17. Date of last use: 04/04/19 Medical History: Remarkable for seizure disorder and history of surgery ( partial right lung lobectomy). Psychiatric History: History of multiple psychiatric hospitalizations ( remembers only [facility] [place]). Patient has been reportedly diagnosed with Bipolar Disorder (for past 12 years). Prescribed depakote + prozac (doses unknown and not taken for 2-3 months as per own account). Mr York denies any affiliation with a psychiatric OPD care provider. No reported history of suicide attempts. Physical/Sexual Abuse/Trauma History: Patient denies. Additional Comment: Urine drug screen results: THC-Marijuana. Noted. Mental Status Exam - Mental Status Exam Alert and Oriented to: Time, Place, Person Cognitive Function: Good Patient Appearance: Unkempt, Disheveled Mood: Nervous, Withdrawn, Irritable Affect: Mood Congruent, Blunted Patient Behavior: Fatigued, Guarded Speech Pattern: Clear Voice Loudness: Normal Thought Process: Goal Oriented Thought Disorder: Not Present Hallucinations: Denies Suicidal Ideation: Denies Homicidal Ideation: Denies Insight/Judgement: Poor Sleep: Well Appetite: Good Gait/Station: Normal Psychiatric Findings - Problem List ([place] 1, 2,3) (1) Alcohol dependence with uncomplicated withdrawal Current Visit: Yes Status: Acute (2) Cannabis dependence Current Visit: Yes Status: Chronic (3) Nicotine dependence Current Visit: Yes Status: Chronic Qualifiers: Nicotine product type: cigarettes Substance use status: in withdrawal Qualified Code(s): F17.213 - Nicotine dependence, cigarettes, with withdrawal (4) Non compliance w medication regimen Current Visit: Yes Status: Chronic (5) Substance induced mood disorder Current Visit: Yes Status: Chronic (6) History of bipolar disorder Current Visit: Yes Status: Chronic - Initial Treatment Plan Initial Treatment Plan: Psychoeducation. Sleep hygiene. Detoxification. Patient declines to resume valproate + fluoxetine. Observation.
[2019-04-06] MEDS ORDERED: DIVALPROEX SODIUM 250 MG TABLET E.C. PO SCH (22:00)
[2019-04-06] MEDS: THIAMINE HCL 100 MG TABLET (FP) PO SCH (22:16)
[2019-04-07] MEDS: chlordiazePOXIDE HCL 25 MG CAPSULE PO SCH ×4 (06:12→22:25)
[2019-04-07] MEDS ORDERED: FLUoxetine HCL 20 MG CAPSULE (FP) PO SCH (10:00)
[2019-04-07] MEDS: PRENATAL VITAMINS W/ FOLIC ACID TABLET (FP) PO SCH (11:57)
[2019-04-07] MEDS: NICOTINE 14 MG/24 HOURS TOPICAL PATCH TD SCH (11:57)
--- NOTE | 2019-04-07 13:17 | PN ---
S CIWA - CIWA Score Nausea/Vomitin-Mild Nausea/No Vomiting Muscle Tremors: 3 Anxiety: 3 Agitation: 3 Paroxysmal Sweats: 3 Orientation: 0-Oriented Tacttile Disturbances: 0-None Auditory Disturbances: 0-None Visual Disturbances: 0-None Headache: 0-None Present CIWA-Ar Total Score: 13 S Progress Note (SOAP) Subjective: Feels ok, medication working well Objective: 04/07/19 13:16 Last Vital Signs Temp Pulse Resp BP Pulse Ox 98.4 F 67 18 100/64 04/07/19 13:11 04/07/19 13:11 04/07/19 13:11 04/07/19 13:11 Laboratory Tests 04/06/19 04/06/19 04/06/19 08:00 08:00 08:00 WBC 4.2 RBC 4.04 Hgb 13.8 Hct 41.0 MCV 101.7 H MCH 34.2 H MCHC 33.7 RDW 13.3 Plt Count 281 MPV 8.5 Sodium 141 Potassium 4.5 Chloride 108 H Carbon Dioxide 27 Anion Gap 6 L BUN 8.5 Creatinine 0.9 Est GFR (CKD-EPI)AfAm 119.13 Est GFR (CKD-EPI)NonAf 102.79 Random Glucose 72 L Calcium 9.1 Total Bilirubin 0.3 AST 17 ALT 20 Alkaline Phosphatase 78 Total Protein 6.3 L Albumin 3.6 RPR Titer Nonreactive Labs reviewed Assessment: 04/07/19 13:16 Withdrawal sxs Plan: Continue detox Encouraged PO water intake
[2019-04-07] MEDS: THIAMINE HCL 100 MG TABLET (FP) PO SCH (22:25)
[2019-04-08] MEDS ORDERED: chlordiazePOXIDE HCL 10 MG CAPSULE PO PRN
[2019-04-08] MEDS: chlordiazePOXIDE HCL 10 MG CAPSULE PO SCH ×4 (06:23→22:21)
--- NOTE | 2019-04-08 10:39 | PN ---
S CIWA - CIWA Score Nausea/Vomitin-Mild Nausea/No Vomiting Muscle Tremors: 1-None Visible, but [place] Anxiety: 1-Mildly Anxious Agitation: 2 Paroxysmal Sweats: No Perspiration Orientation: 0-Oriented Tacttile Disturbances: 0-None Auditory Disturbances: 1-Very Mild Visual Disturbances: 0-None Headache: 2-Mild CIWA-Ar Total Score: 8 BHS Progress Note (SOAP) Subjective: alert,irritable,anxious,interrupted sleep,tremor Objective: 04/08/19 10:37 Vital Signs Temperature 97.7 F 04/08/19 06:00 Pulse Rate 60 04/08/19 06:00 Respiratory Rate 18 04/08/19 06:00 Blood Pressure 109/69 04/08/19 06:00 O2 Sat by Pulse Oximetry (%) 04/08/19 10:37 Laboratory Last Values WBC 4.2 K/mm3 (4.0-10.0) 04/06/19 08:00 RBC 4.04 M/mm3 (4.00-5.60) 04/06/19 08:00 Hgb 13.8 GM/dL (11.7-16.9) 04/06/19 08:00 Hct 41.0 % (35.4-49) 04/06/19 08:00 MCV 101.7 fl (80-96) H 04/06/19 08:00 MCH 34.2 pg (25.7-33.7) H 04/06/19 08:00 MCHC 33.7 g/dl (32.0-35.9) 04/06/19 08:00 RDW 13.3 % (11.9-15.9) 04/06/19 08:00 Plt Count 281 K/MM3 (134-434) 04/06/19 08:00 MPV 8.5 fl (7.5-11.1) 04/06/19 08:00 Sodium 141 mmol/L (136-145) 04/06/19 08:00 Potassium 4.5 mmol/L (3.5-5.1) 04/06/19 08:00 Chloride 108 mmol/L (98-107) H 04/06/19 08:00 Carbon Dioxide 27 mmol/L (21-32) 04/06/19 08:00 Anion Gap 6 MMOL/L (8-16) L 04/06/19 08:00 BUN 8.5 mg/dL (7-18) 04/06/19 08:00 Creatinine 0.9 mg/dL (0.55-1.3) 04/06/19 08:00 Est GFR (CKD-EPI)AfAm 119.13 04/06/19 08:00 Est GFR (CKD-EPI)NonAf 102.79 04/06/19 08:00 Random Glucose 72 mg/dL (74-106) L 04/06/19 08:00 Calcium 9.1 mg/dL (8.5-10.1) 04/06/19 08:00 Total Bilirubin 0.3 mg/dL (0.2-1) 04/06/19 08:00 AST 17 U/L (15-37) 04/06/19 08:00 ALT 20 U/L (13-61) 04/06/19 08:00 Alkaline Phosphatase 78 U/L (45-117) 04/06/19 08:00 Total Protein 6.3 g/dl (6.4-8.2) L 04/06/19 08:00 Albumin 3.6 g/dl (3.4-5.0) 04/06/19 08:00 RPR Titer Nonreactive (NONREACTIVE) 04/06/19 08:00 Assessment: 04/08/19 10:38 withdrawal symptom Plan: continue detox librium regimen
[2019-04-08] MEDS: NICOTINE 14 MG/24 HOURS TOPICAL PATCH TD SCH (11:30)
[2019-04-08] MEDS: PRENATAL VITAMINS W/ FOLIC ACID TABLET (FP) PO SCH (11:30)
[2019-04-08] MEDS: THIAMINE HCL 100 MG TABLET (FP) PO SCH (22:21)
[2019-04-09] MEDS: chlordiazePOXIDE HCL 10 MG CAPSULE PO SCH ×2 (06:45→17:15)
[2019-04-09 10:27] LABS: PH,URINE 7.5 (5.0-8.0); URINE APPEARANCE CLOUDY; URINE BILIRUBIN NEGATIVE (NEGATIVE); URINE COLOR YELLOW; URINE GLUCOSE (UA) NEGATIVE (NEGATIVE); URINE KETONE NEGATIVE (NEGATIVE); URINE LEUK ESTERASE NEGATIVE (NEGATIVE); URINE NITRITE NEGATIVE (NEGATIVE); URINE PROTEIN NEGATIVE (NEGATIVE); URINE UROBILINOGEN 0.2 mg/dL (0.2-1.0)
[2019-04-09] MEDS: NICOTINE 14 MG/24 HOURS TOPICAL PATCH TD SCH (10:36)
[2019-04-09] MEDS: PRENATAL VITAMINS W/ FOLIC ACID TABLET (FP) PO SCH (10:36)
--- NOTE | 2019-04-09 14:41 | PN ---
[facility] CIWA - CIWA Score Nausea/Vomitin-No Nausea/No Vomiting Muscle Tremors: None Anxiety: 0-No Anxiety, at Ease Agitation: 2 Paroxysmal Sweats: No Perspiration Orientation: 0-Oriented Tacttile Disturbances: 0-None Auditory Disturbances: 0-None Visual Disturbances: 0-None Headache: 0-None Present CIWA-Ar Total Score: 2 BHS Progress Note (SOAP) Subjective: Patient denies current Withdrawal / Detox symptoms and reports that he feels well overall at this time. Objective: PATIENT A & O X 3, OBSERVED AMBULATING ON DETOX UNIT UNASSISTED. IN NO ACUTE DISTRESS. 04/09/19 14:40 Vital Signs Temperature 98.1 F 04/09/19 12:58 Pulse Rate 76 04/09/19 12:58 Respiratory Rate 18 04/09/19 12:58 Blood Pressure 113/61 04/09/19 12:58 O2 Sat by Pulse Oximetry (%) Laboratory Tests 04/06/19 04/06/19 04/06/19 08:00 08:00 08:00 WBC 4.2 RBC 4.04 Hgb 13.8 Hct 41.0 MCV 101.7 H MCH 34.2 H MCHC 33.7 RDW 13.3 Plt Count 281 MPV 8.5 Sodium 141 Potassium 4.5 Chloride 108 H Carbon Dioxide 27 Anion Gap 6 L BUN 8.5 Creatinine 0.9 Est GFR (CKD-EPI)AfAm 119.13 Est GFR (CKD-EPI)NonAf 102.79 Random Glucose 72 L Calcium 9.1 Total Bilirubin 0.3 AST 17 ALT 20 Alkaline Phosphatase 78 Total Protein 6.3 L Albumin 3.6 Urine Color Urine Appearance Urine pH Ur Specific [place] Urine Protein Urine Glucose (UA) Urine Ketones Urine Blood Urine Nitrite Urine Bilirubin Urine Urobilinogen Ur Leukocyte Esterase RPR Titer Nonreactive 04/09/19 08:15 WBC RBC Hgb Hct MCV MCH MCHC RDW Plt Count MPV Sodium Potassium Chloride Carbon Dioxide Anion Gap BUN Creatinine Est GFR (CKD-EPI)AfAm Est GFR (CKD-EPI)NonAf Random Glucose Calcium Total Bilirubin AST ALT Alkaline Phosphatase Total Protein Albumin Urine Color Yellow Urine Appearance Cloudy Urine pH 7.5 D Ur Specific [place] 1.018 Urine Protein Negative Urine Glucose (UA) Negative Urine Ketones Negative Urine Blood Negative Urine Nitrite Negative Urine Bilirubin Negative Urine Urobilinogen 0.2 Ur Leukocyte Esterase Negative RPR Titer LABS NOTED. Assessment: 04/09/19 14:41 WITHDRAWAL SYMPTOMS. Plan: CONTINUE DETOX. PATIENT SCHEDULED FOR D/C FROM DETOX UNIT TOMORROW.
[2019-04-09] MEDS: THIAMINE HCL 100 MG TABLET (FP) PO SCH (21:39)
[2019-04-10] MEDS ORDERED: chlordiazePOXIDE HCL 10 MG CAPSULE PO ONE (05:00)
--- NOTE | 2019-04-10 08:56 | DS ---
[facility] Detox Discharge Summary Admission Date: 04/05/19 Discharge Date: 04/10/19 - History Present History: Alcohol Dependence, Cannabis Dependence, Cocaine Dependence - Physical Exam Results Vital Signs: Vital Signs Temperature 98.4 F 04/10/19 08:45 Pulse Rate 75 04/10/19 08:45 Respiratory Rate 18 04/10/19 08:45 Blood Pressure 118/72 04/10/19 08:45 O2 Sat by Pulse Oximetry (%) Pertinent Admission Physical Exam Findings: pt arrived in withdrawals Laboratory Tests 04/06/19 04/06/19 04/06/19 08:00 08:00 08:00 WBC 4.2 RBC 4.04 Hgb 13.8 Hct 41.0 MCV 101.7 H MCH 34.2 H MCHC 33.7 RDW 13.3 Plt Count 281 MPV 8.5 Sodium 141 Potassium 4.5 Chloride 108 H Carbon Dioxide 27 Anion Gap 6 L BUN 8.5 Creatinine 0.9 Est GFR (CKD-EPI)AfAm 119.13 Est GFR (CKD-EPI)NonAf 102.79 Random Glucose 72 L Calcium 9.1 Total Bilirubin 0.3 AST 17 ALT 20 Alkaline Phosphatase 78 Total Protein 6.3 L Albumin 3.6 Urine Color Urine Appearance Urine pH Ur Specific [place] Urine Protein Urine Glucose (UA) Urine Ketones Urine Blood Urine Nitrite Urine Bilirubin Urine Urobilinogen Ur Leukocyte Esterase RPR Titer Nonreactive 04/09/19 08:15 WBC RBC Hgb Hct MCV MCH MCHC RDW Plt Count MPV Sodium Potassium Chloride Carbon Dioxide Anion Gap BUN Creatinine Est GFR (CKD-EPI)AfAm Est GFR (CKD-EPI)NonAf Random Glucose Calcium Total Bilirubin AST ALT Alkaline Phosphatase Total Protein Albumin Urine Color Yellow Urine Appearance Cloudy Urine pH 7.5 D Ur Specific [place] 1.018 Urine Protein Negative Urine Glucose (UA) Negative Urine Ketones Negative Urine Blood Negative Urine Nitrite Negative Urine Bilirubin Negative Urine Urobilinogen 0.2 Ur Leukocyte Esterase Negative RPR Titer pt is aaox3 ambulating no acute distress - Treatment Hospital Course: Detox Protocol Followed, Detoxed Safely, Responded well, Discharged Condition Good, Rehab Referral Accepted - Medication Discharge Medications: Ambulatory Orders Divalproex [Depakote -] 250 mg PO BID 08/01/15 Fluoxetine HCl [Prozac -] 20 mg PO DAILY 08/01/15 - Diagnosis (1) Alcohol dependence with uncomplicated withdrawal Current Visit: Yes Status: Chronic (2) Cannabis dependence Current Visit: Yes Status: Chronic (3) Cocaine dependence Current Visit: Yes Status: Chronic Qualifiers: Substance use status: uncomplicated Qualified Code(s): F14.20 - Cocaine dependence, uncomplicated (4) History of bipolar disorder Current Visit: Yes Status: Chronic (5) Nicotine dependence Current Visit: Yes Status: Chronic Qualifiers: Nicotine product type: cigarettes Substance use status: uncomplicated Qualified Code(s): F17.210 - Nicotine dependence, cigarettes, uncomplicated (6) Non compliance w medication regimen Current Visit: Yes Status: Chronic (7) Substance induced mood disorder Current Visit: Yes Status: Chronic (8) S/P removal of lung Current Visit: No Status: Acute (9) Cannabis dependence, uncomplicated Current Visit: No Status: Chronic (10) Depression Current Visit: No Status: Chronic Qualifiers: Depression Type: unspecified Qualified Code(s): F32.9 - Major depressive disorder, single episode, unspecified (11) Schizoaffective disorder Current Visit: No Status: Chronic (12) Bipolar II disorder Current Visit: No Status: Suspected (13) Seizures Current Visit: No Status: Suspected (14) Status post partial lobectomy of lung Current Visit: No Status: Resolved - AMA Did Patient Leave Against Medical Advice: No
[2019-04-10] MEDS: NICOTINE 14 MG/24 HOURS TOPICAL PATCH TD SCH (10:39)
[2019-04-10] MEDS: PRENATAL VITAMINS W/ FOLIC ACID TABLET (FP) PO SCH (10:39)
[2019-04-10 12:38] VITALS: BP 143/82; PULSE 74; TEMP 97.6
== END 2019-04-10 12:48 | disposition other institution (70) | DRG 774 ==
LOC: YASAS 13:00 → Y6N 21:40
PROVIDERS: ADMIT Surgery; ATTEND Surgery
PROC: HZ2ZZZZ Detoxification Services for Substance Abuse Treatment (ICD-10-PCS; principal; 2019-04-05)
DX: F10.230 Alcohol dependence with withdrawal, uncomplicated (principal); F14.20 Cocaine dependence, uncomplicated; F12.20 Cannabis dependence, uncomplicated; F17.210 Nicotine dependence, cigarettes, uncomplicated; F19.24 Other psychoactive substance dependence with psychoactive substance-induced mood disorder; F25.9 Schizoaffective disorder, unspecified; F31.81 Bipolar II disorder; Z91.14 Patient's other noncompliance with medication regimen; Z90.2 Acquired absence of lung [part of]; Z86.69 Personal history of other diseases of the nervous system and sense organs; Z59.0 Homelessness
CPT/HCPCS: 36415; 80053; 81003; 85027; 86593

== ENCOUNTER 2019-04-10 12:57 | Inpatient (IN) | payer OTHER ==
[2019-04-11] MEDS ORDERED: MAGNESIUM HYDROX 2400MG/30ML ORAL SUSPENSION 30 ML CUP PO PRN (00:36)
[2019-04-11] MEDS ORDERED: MAGNESIUM CITRATE 300 ML BOTTLE PO PRN (00:36)
[2019-04-11] MEDS ORDERED: IBUPROFEN 400 MG TABLET (FP) PO PRN (00:36)
[2019-04-11] MEDS ORDERED: MAG HYDROX/AL HYDROX/SIMETH 30 ML UNIT-DOSE CUP PO PRN (00:36)
[2019-04-11] MEDS ORDERED: ACETAMINOPHEN 325 MG TABLET (FP) PO PRN (00:36)
[2019-04-11] MEDS ORDERED: MENTHOL/PHENOL 1 EACH UD MM PRN (00:36)
[2019-04-11] MEDS ORDERED: guaiFENesin 200 MG/10 ML 10 ML UNIT-DOSE CUPS PO PRN (00:36)
[2019-04-11] MEDS ORDERED: hydrOXYzine PAMOATE 25 MG CAPSULE (FP) PO PRN (00:36)
[2019-04-11] MEDS ORDERED: LOPERAMIDE HCL 2 MG CAPSULE PO PRN (00:36)
[2019-04-11] MEDS ORDERED: P-EPHED 60MG/TRIPROLIDI 2.5MG TABLET PO PRN (00:36)
[2019-04-11] MEDS ORDERED: NICOTINE POLACRILEX 2 MG GUM BUC PRN (00:36)
--- NOTE | 2019-04-11 00:36 | HP ---
[facility] Re[facility] Assess/Revision - Admission History Admitted to Rehab from: [facility] Date of Admission to Rehab: 04/10/2019 - Findings Detox History & Physical reviewed: Yes Concur with findings: Yes Inpatient Rehab Admission - Rehab Decision to Admit Inpatient rehab admission?: Yes - Initial Determination Are CD services needed?: Yes Free of communicable disease: Yes Not in need of hospitalization: Yes - Rehab Admission Criteria Previous failed treatment: Yes Poor recovery environment: Yes Comorbidities: Yes Lacks judgement: No Patient is meeting Inpatient Rehab admission criteria:: Yes
[2019-04-11] MEDS: PRENATAL VITAMINS W/ FOLIC ACID TABLET (FP) PO SCH (11:00)
[2019-04-11] MEDS: NICOTINE 14 MG/24 HOURS TOPICAL PATCH TD SCH (11:00)
--- NOTE | 2019-04-11 18:03 | CONSULT ---
[facility] Psychiatric Consult - Data Date of interview: 04/11/19 Admission source: [facility] Identifying data: Patient is a 43 year old single male, without children, unemployed, homeless, and is supported by [facility]. This is one of multiple admissions for patient. Patient admitted to for alcohol and marijuana dependence. Substance Abuse History: Smoking Cessation. Smoking history: Current every day smoker. Have you smoked in the past 12 months: Yes. Aproximately how many cigarettes per day: 10. Cigars Per Day: 0. Hx Chewing Tobacco Use: No. Initiated information on smoking cessation: Yes. 'Breaking Loose' booklet given : 04/05/19. - Substance & Tx. History. Hx Alcohol Use: Yes. Hx Substance Use : Yes. Substance Use Type: Alcohol, Marijuana. Hx Substance Use Treatment: Yes ([facility]). - Substances abused. Alcohol. Substance route: Oral. Frequency: Daily. Amount used: 6/40oz of beer, 2 pints of vodka. Age of first use: 17. Date of last use: 04/04/19. Marijuana/Hashish. Substance route: Smoking. Frequency: Daily. Amount used: $10. Age of first use: 17. Date of last use: 04/04/19 Medical History: Seizures, Partial R lung Lobectomy removed in 2005 Psychiatric History: Patient's first psychiatric contact occured in 1996 after he begun to hear voices and had to be admitted to [facility]. He was diagnosed with schizophrenia/bipolar disorder and prescribed psychotropic medications. Mr. York's most recent hospitalization was at [facility] due to auditory hallucinations. He reports past trials of prozac, depakote, zyprexa , and risperdal. Patient with a history of noncompliance to treatment. He denies history of suicide attempt. Patient currently denies auditory/visual hallucinations, paranoid ideation, suicidal/homicidal ideation. No psychosis noted. Physical/Sexual Abuse/Trauma History: denies. Mental Status Exam - Mental Status Exam Alert and Oriented to: Time, Place, Person Cognitive Function: Good Patient Appearance: Well Groomed Mood: Euthymic Affect: Mood Congruent Patient Behavior: Appropriate, Cooperative Speech Pattern: Appropriate Voice Loudness: Normal Thought Process: Goal Oriented Thought Disorder: Not Present Hallucinations: Denies Suicidal Ideation: Denies Homicidal Ideation: Denies Insight/Judgement: Poor Sleep: Fair Appetite: Fair Muscle strength/Tone: Normal Gait/Station: Normal Psychiatric Findings - Problem List ([place] 1, 2,3) (1) Alcohol dependence Current Visit: Yes Status: Acute (2) Cannabis dependence Current Visit: Yes Status: Acute (3) Schizoaffective disorder Current Visit: No Status: Chronic (4) Nicotine dependence Current Visit: Yes Status: Chronic Qualifiers: Nicotine product type: cigarettes Substance use status: uncomplicated Qualified Code(s): F17.210 - Nicotine dependence, cigarettes, uncomplicated - Initial Treatment Plan Initial Treatment Plan: Psychoeducation provided. Rehab in progress. Observation. Patient refusing to accept psychotropic medications. Patient made aware of the risk of refusing to accept medications.
[2019-04-11] MEDS: THIAMINE HCL 100 MG TABLET (FP) PO SCH (21:45)
[2019-04-11] MEDS ORDERED: MELATONIN 5 MG TABLETS PO PRN (22:00)
[2019-04-12] MEDS: PRENATAL VITAMINS W/ FOLIC ACID TABLET (FP) PO SCH (10:09)
[2019-04-12] MEDS: NICOTINE 14 MG/24 HOURS TOPICAL PATCH TD SCH (10:09)
[2019-04-12] MEDS: THIAMINE HCL 100 MG TABLET (FP) PO SCH (21:35)
[2019-04-13] MEDS: NICOTINE 14 MG/24 HOURS TOPICAL PATCH TD SCH (10:27)
[2019-04-13] MEDS: PRENATAL VITAMINS W/ FOLIC ACID TABLET (FP) PO SCH (10:27)
[2019-04-13] MEDS: THIAMINE HCL 100 MG TABLET (FP) PO SCH (21:58)
[2019-04-14] MEDS: NICOTINE 14 MG/24 HOURS TOPICAL PATCH TD SCH (10:11)
[2019-04-14] MEDS: PRENATAL VITAMINS W/ FOLIC ACID TABLET (FP) PO SCH (10:11)
[2019-04-14] MEDS: THIAMINE HCL 100 MG TABLET (FP) PO SCH (22:09)
[2019-04-15] MEDS: PRENATAL VITAMINS W/ FOLIC ACID TABLET (FP) PO SCH (10:04)
[2019-04-15] MEDS: NICOTINE 14 MG/24 HOURS TOPICAL PATCH TD SCH (10:04)
[2019-04-15] MEDS: THIAMINE HCL 100 MG TABLET (FP) PO SCH (21:43)
[2019-04-16] MEDS: PRENATAL VITAMINS W/ FOLIC ACID TABLET (FP) PO SCH (10:15)
[2019-04-16] MEDS: NICOTINE 14 MG/24 HOURS TOPICAL PATCH TD SCH (10:15)
[2019-04-16] MEDS: THIAMINE HCL 100 MG TABLET (FP) PO SCH (21:43)
[2019-04-17] MEDS: PRENATAL VITAMINS W/ FOLIC ACID TABLET (FP) PO SCH (10:16)
[2019-04-17] MEDS: NICOTINE 14 MG/24 HOURS TOPICAL PATCH TD SCH (10:17)
[2019-04-17] MEDS: THIAMINE HCL 100 MG TABLET (FP) PO SCH (21:39)
[2019-04-18] MEDS: NICOTINE 14 MG/24 HOURS TOPICAL PATCH TD SCH (10:26)
[2019-04-18] MEDS: PRENATAL VITAMINS W/ FOLIC ACID TABLET (FP) PO SCH (10:26)
[2019-04-18] MEDS: THIAMINE HCL 100 MG TABLET (FP) PO SCH (22:07)
[2019-04-19 06:50] VITALS: BP 112/73; PULSE 94; TEMP 98.3
[2019-04-19] MEDS: NICOTINE 14 MG/24 HOURS TOPICAL PATCH TD SCH (10:44)
[2019-04-19] MEDS: PRENATAL VITAMINS W/ FOLIC ACID TABLET (FP) PO SCH (10:45)
--- NOTE | 2019-04-19 14:07 | DS ---
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 REPORTS MOST RECENT CLEAN TIME 2 MONTHS RELAPSING 1 WEEK AGO. REPORTS EPISODE OF BLACK OUTS AND SEIZURE. LAST SEIZURE 2004. HAS HX OF EPILEPTIC SZ. HX/O AUDITORY HALLUCINATIONS ASSOCIATED WITH DRUG USE. BUT PRESENTLY DENIES. HOMELESS, UNEMPLOYED, DENIES LEGALS - Discharge Physical Exam Vital Signs: Vital Signs Temperature 98.3 F 04/19/19 06:49 Pulse Rate 94 H 04/19/19 06:49 Respiratory Rate 18 04/19/19 06:49 Blood Pressure 112/73 04/19/19 06:49 O2 Sat by Pulse Oximetry (%) Pertinent Admission Physical Exam Findings: Physical General Appearance: No apparent distress HEENTM: Normocephalic, Respiratory: Lungs Clear,, No Respiratory Distress, No Accessory Muscle Use Neck: Supple, Trachea in good position Cardiology: S1, S2 Abdominal:+ Bowel Sounds, Non Tender, Soft Musculoskeletal: full range of Motion, Gait Steady Neurological: CN 2-12 intactMotor Strength 5/5, Depressed Affect Integumentary: Good skin turgor, color consistent throughout trunk and extremities. - Treatment Discharge Condition: Outpatient referral accepted (medically stable for discharge. Patient has a referral to [facility], but he does not want to go there. He was also given a referral to [facility] substance use treatment center. ) Hospital Course: patient had 1:1 meetings with his counselor, was seen by psychiatric service, attended meetings, was adherent to his treatment plan and medication regimen. During his stay in rehab he had no medical problems that required acute or emergent care. - Medication Discharge Medications: Ambulatory Orders Divalproex [Depakote -] 250 mg PO BID 08/01/15 Fluoxetine HCl [Prozac -] 20 mg PO DAILY 08/01/15 - Medication-Assisted Treatment (MAT) Medication-Assisted Treatment (MAT): No - Discharge Instructions Diet, activity, other medical instructions: Diet: as appropriate Activity: as appropriate Other medical instructions: Please follow up with referral for aftercare. - Diagnosis (1) Alcohol dependence Current Visit: Yes Status: Chronic Qualifiers: Substance use status: uncomplicated Qualified Code(s): F10.20 - Alcohol dependence, uncomplicated (2) Cannabis dependence Current Visit: Yes Status: Chronic (3) Cocaine dependence Current Visit: No Status: Chronic Qualifiers: Substance use status: uncomplicated Qualified Code(s): F14.20 - Cocaine dependence, uncomplicated - Follow-up Referral Minutes to complete discharge: 20 - AMA Did Patient Leave Against Medical Advice: No Additional Comments: Patient is medically stable for discharge. He does not have any chronic medical conditions that require prescriptions.
== END 2019-04-19 14:25 | disposition home or self-care (01) | DRG 772 ==
LOC: YASAS 12:57 → Y3W 12:58
PROVIDERS: ADMIT Neuromusculoskeletal Medicine & OMM; ATTEND Neuromusculoskeletal Medicine & OMM
PROC: HZ42ZZZ Group Counseling for Substance Abuse Treatment, Cognitive-Behavioral (ICD-10-PCS; principal; 2019-04-10)
DX: F10.20 Alcohol dependence, uncomplicated (principal); F14.20 Cocaine dependence, uncomplicated; F12.20 Cannabis dependence, uncomplicated; F17.210 Nicotine dependence, cigarettes, uncomplicated; F25.9 Schizoaffective disorder, unspecified; R56.9 Unspecified convulsions; Z90.2 Acquired absence of lung [part of]